=== PATIENT | female | born 1960 | race African-American/Black ===

== ENCOUNTER → 2017-09-15 | Day surgery (SDC) | payer BC, OTHER ==
--- NOTE | 2017-09-18 15:09 | PATH ---
Surgical Pathology Report Patient Name: NATALY DAVALOS [facility]. Rec. #: [id number] /Age/Gender: 1960 (Age: 57) / F Account: [id number] Location: [facility] RADIOLOGY U Taken: 09/15/2017 Received: 09/15/2017 Reported: 09/18/2017 Physicians: Megan Garcia M.D. Specimen(s) Received RIGHT BREAST CORE BIOPSY Clinical History Palpable mass Ultrasound findings: Suspicious Final Diagnosis BREAST, RIGHT, CORE BIOPSY: INVASIVE DUCTAL CARCINOMA , MODERATELY DIFFERENTIATED, MEASURING 1.3 CM IN THIS MATERIAL. BREAST PROGNOSTIC MARKERS ARE PENDING AND WILL BE REPORTED AN ADDENDUM. Electronically Signed Carina Christianson M.D. Addendum Reported: 09/19/2017 Addendum Diagnosis Results of Estrogen Receptor (ER) and Progesterone Receptor (OK) studies performed at [facility] are as follows: ER (clone [id number] mouse monoclonal antibody by [employer]): 99 % nuclear staining with strong intensity (Positive). OK (clone16 mouse monoclonal antibody by Leica): 0% nuclear staining (Negative). Results of Her2 (IHC) & Ki-67 studies performed at [place], [place] ([id number]) and interpreted at [facility] are as follows: Her2 IHC (EP3 from [employer], formerly known as [id number], using Louis Polymer Refine detection kit): 0 (Negative) Ki-67: Up to 30% (intermediate proliferative index). Positive and negative controls (internal if applicable) show appropriate results. Formalin fixation and cold ischemic times are within current ASCO/CAP recommendations for ER, OK and Her2 testing. Carina Christianson M.D. Gross Description Received in formalin labeled "right breast biopsy RA," are 9 wang-yellow, cylindrical portions of fibroadipose tissue ranging from 0.3-1.3 cm in length and averaging 0.1 cm in diameter. The specimens are submitted in toto in 2 cassettes Time to formalin fixation: Less than one minute Total formalin fixation time: Approximately 6 hours. 09/15/201709/15/2017
--- NOTE | 2017-09-19 00:34 | OP ---
DATE OF OPERATION: 09/15/2017 PREOPERATIVE DIAGNOSIS: Right breast mass, retroareolar. POSTOPERATIVE DIAGNOSIS: Right breast mass, retroareolar. PROCEDURE: Right ultrasound-guided core biopsy with clip placement. ATTENDING SURGEON: Kenny Burrell M.D. ESTIMATED BLOOD LOSS: Minimal. COMPLICATIONS: None. DESCRIPTION OF PROCEDURE: Patient was made aware of risks and benefits of the procedure and consented. She is placed in a supine position. Under sterile conditions, with 1% lidocaine for local anesthesia, a small william was made in the skin. Using a 13-gauge suction biopsy device, the inferolateral approach under ultrasound guidance, multiple cores were obtained and submitted to pathology. Likewise under ultrasound guidance, a U-shaped clip was placed into the biopsy region. Well tolerated by patient. Steri-Strip and a sterile bandage was applied. Will contact her with results. KENNY BURRELL M.D. [id number]
== END | disposition home or self-care (01) ==
LOC: FRADUS-SUR 13:24
PROVIDERS: ATTEND Surgery
PROC: 0HBT3ZX Excision of Right Breast, Percutaneous Approach, Diagnostic (ICD-10-PCS; principal; 2017-09-15)
DX: C50.111 Malignant neoplasm of central portion of right female breast (principal); N63.41 Unspecified lump in right breast, subareolar
CPT/HCPCS: 19083; 87899; 88305-TC; 88342-TC; A4648

== ENCOUNTER 2017-10-10 06:14 | Day surgery (SDC) | payer BC, OTHER ==
[2017-10-03 15:13] VITALS: BMI 28.3
--- NOTE | 2017-10-06 10:36 | HP ---
Admitting History and Physical - Primary Care Physician PCP: Naima Pang - Admission Chief Complaint: Right breast cancer History of Present Illness: 57 year old postmenapausal female whose partner noted right breast mass . Mammogram 07/2017 showed right breast 2.4 cm mass and on US 2.2 cm US core biopsy 08/2017 right breast showed invasive ductal carcinoma. MRI breast 2016 showed left breast no enhancement and newly diagnosed right breast cancer without evidence of adenopathy. History Source: Patient Limitations to Obtaining History: No Limitations - Past Medical History Cardiovascular: Yes: HTN - Past Surgical History Additional Past Surgical History: left beast excisional biopsy benign 1976 - Advance Directives Advance Directives: Yes: Health Care Proxy - Smoking History Smoking history: Never smoked Have you smoked in the past 12 months: No - Alcohol/Substance Use Hx Alcohol Use: No Home Medications - Allergies Allergies/Adverse Reactions: Allergies Allergy/AdvReac Type Severity Reaction Status Date / Time Penicillins Allergy Verified 10/03/17 14:52 - Home Medications Home Medications: Ambulatory Orders Amlodipine Besylate 10 mg PO DAILY 10/03/17 Calc/D3/Mag/Zn/[place]/Maximiliano/[place] [Calcium 600 mg Plus Vit D Tab] 1 tab PO DAILY Chlorthalidone [Hygroton -] 25 mg PO DAILY 10/03/17 Enalapril Maleate [Vasotec -] 10 mg PO DAILY 10/03/17 Ergocalciferol [Vitamin D2] 50,000 unit PO DAILY 10/03/17 Labetalol HCl [Normodyne -] 200 mg PO BID 10/03/17 Family Disease History - Family Disease History Family History: Unremarkable Physical Examination Constitutional: Yes: Well Nourished, No Distress Breast(s): Yes: Other (healed left breast scar with out palpable mass , right retroareolar mass at 12:00 which is hard with irreguar borders measuring 3 cm and postBX changes.) Problem List - Problems (1) Breast cancer, right breast Code(s): C50.911 - MALIGNANT NEOPLASM OF UNSP SITE OF RIGHT FEMALE BREAST Qualifiers: Breast location: areola Patient sex: female Assessment/Plan Right breast wide excision, sentenel node biopsy ,lymphoscintogram , possible axillary node dissection
[2017-10-10] MEDS ORDERED: LIDOCAINE HCL 1%, 10 MG/ML (20ML VIAL) ONE (07:36)
[2017-10-10] MEDS ORDERED: ISOSULFAN BLUE 10 MG/ML VIAL SQ ONE (07:36)
--- NOTE | 2017-10-10 09:06 | HP ---
History & Physical Update - History History: No Change - Physical Physical: No Change - Assessment Assessment: No Change - Plan Plan: No Change
[2017-10-10] MEDS ORDERED: CLINDAMYCIN PHOSPHATE 600 MG/4 ML VIAL IVPB ONE (09:24)
[2017-10-10] MEDS ORDERED: ONDANSETRON 4 MG/2 ML VIAL IVPUSH PRN (10:21)
[2017-10-10] MEDS ORDERED: LACTATED RINGERS SOLUTION 1,000 ML IV SCH (10:30)
[2017-10-10] MEDS ORDERED: ZOLPIDEM TARTRATE 5 MG TABLET PO PRN (11:38)
[2017-10-10] MEDS ORDERED: ACETAMINOPHEN 325 MG TABLET (FP) PO PRN (11:38)
[2017-10-10] MEDS ORDERED: ONDANSETRON 4 MG/2 ML VIAL IVPB PRN (11:38)
[2017-10-10] MEDS: DEXTROSE 5%-0.45% SALINE 1,000 ML IV SCH ×2 (12:23→18:36)
[2017-10-10 12:34] LABS: MEAN CELL VOLUME 92.9 fl (80-96); WHITE BLOOD COUNT 7.7 K/mm3 (4.0-10.0)
[2017-10-10 12:35] LABS: MCH 30.5 pg (25.7-33.7); MCHC 32.8 g/dl (32.0-36.0); MEAN PLT VOLUME 7.4 fl (7.5-11.1); PLATELET COUNT 204 K/MM3 (134-434); RDW 14.3 % (11.6-15.6)
--- NOTE | 2017-10-10 16:42 | OP ---
DATE OF OPERATION: 10/10/2017 PREOPERATIVE DIAGNOSIS: Right breast cancer. POSTOPERATIVE DIAGNOSIS: Right breast cancer. PROCEDURE: Right partial mastectomy and axillary node dissection. SURGEON: Meme Pang MD MACHINE HAND: SHAUN Gurrola ANESTHESIA: General. SPECIMEN: 1. [place] nodes for frozen section. 2. Right partial mastectomy. 3. Additional margins. 4. Additional margins. 5. Additional margins. 6. Additional margins. 7. Additional margins. 8. Additional margins. 9. Axillary contents. ESTIMATED BLOOD LOSS: 100 mL DRAINS: One number 10 JUSTICE. INDICATION FOR PROCEDURE: The patient is a 57-year-old woman who noted a right retroareolar breast mass. Mammogram and ultrasound showed a suspicious mass measuring 2.2 cm. Ultrasound-guided biopsy showed an ER positive, UT negative, HER2-negative invasive ductal cancer. After discussion of her options, she preferred breast conservation. Because the mass was located right behind the areola and the MRI indicated involvement of the nipple, the plan was to do a central excision and a sentinel node biopsy. The procedure, risks, and complications were discussed with the patient prior to surgery. DESCRIPTION OF PROCEDURE: The patient was taken to Nuclear Medicine where she underwent a lymphoscintigraphy to identify the sentinel node. She was then identified in the holding area, and informed consent was obtained. The right breast was marked with a marker. She was taken to the operating room and placed on the operating table in the supine position. She was intubated. Sequential compression devices were placed on both legs. She was given clindamycin prior to surgery. She was intubated, and the right breast was prepped and draped in the usual fashion. A timeout was performed. The breast was injected with isosulfan blue and massaged for 5 minutes. Examination of the axilla with a probe showed an area of high counts. An incision was made in this area with a scalpel. The incision was deepened using electrocautery. Immediately upon entering the axillary fat pad, blue dye was identified. Dissection into this area revealed a large, firm node which was suspicious for metastatic disease. There was also a smaller firm node right beneath this one. Both nodes were blue and hot. They were removed and sent to Pathology for frozen section. Frozen section indicated both nodes showed metastatic cancer. The decision was made to perform an axillary dissection. While waiting for the results of the frozen section, the partial mastectomy was performed. The mass could be felt at the upper border of the areola. An elliptical incision was made around the nipple-areolar complex. The incision was deepened using electrocautery. The dissection continued through the breast until the entire mass was mobilized. The specimen was then removed and oriented with silk sutures. Additional margins were then taken from the superior, deep, medial and lateral regions of the biopsy cavity. They were all labeled with a silk suture at the biopsy cavity side. All specimens were placed in formalin and sent to Pathology. The axillary dissection was then performed. The axillary vein was identified. The fatty catrina tissue inferior to the axillary vein was bluntly dissected free. The tissue along the chest wall and anterior to the latissimus dorsi was included with the specimen. There were some small lymph nodes identified within the specimen. The thoracodorsal nerve was identified and spared. The long thoracic nerve was not identified. The catrina tissue was removed and labeled as axillary contents. It was placed in formalin and sent to Pathology. The wounds were irrigated and inspected for hemostasis. Once hemostasis was satisfactory, the incisions were closed. The axillary incision was closed after a JUSTICE drain was placed. The drain was placed through a separate stab wound and secured using 3-0 nylon suture. The dermis was closed with interrupted sutures of 3-0 Vicryl, and the skin was closed with a running subcuticular closure of 4-0 Biosyn. The breast incision was closed using interrupted sutures of 2-0 plain for the deep tissue and interrupted sutures of 3-0 Vicryl for the dermis. The skin was infiltrated with 0.5% marcaine. The skin was closed with a running subcuticular closure of 4-0 Biosyn. Both wounds were covered with Steri- Strips and a sterile gauze dressing. A surgical bra was then applied. The patient tolerated the procedure well. At the end of the procedure, all sponge, lap, and instrument counts were correct. She was awakened and taken to the recovery area in satisfactory condition. MEME PANG M.D. [id number] MTDD
[2017-10-10] MEDS: CLINDAMYCIN 300 MG PREMIX IVPB 300 MG/50 ML BAG IVPB SCH ×2 (18:33→21:05)
[2017-10-11] MEDS: DEXTROSE 5%-0.45% SALINE 1,000 ML IV SCH (00:04)
[2017-10-11] MEDS: CLINDAMYCIN 300 MG PREMIX IVPB 300 MG/50 ML BAG IVPB SCH ×2 (02:47→09:39)
[2017-10-11 07:57] LABS: MCH 30.6 pg (25.7-33.7); MCHC 33.6 g/dl (32.0-36.0); MEAN CELL VOLUME 91.1 fl (80-96); MEAN PLT VOLUME 7.9 fl (7.5-11.1); PLATELET COUNT 194 K/MM3 (134-434); RDW 14.1 % (11.6-15.6); WHITE BLOOD COUNT 10.4 K/mm3 (4.0-10.0)
[2017-10-11] MEDS ORDERED: HEPARIN NA (PORCINE) 5,000 UNITS/ML 1ML VIAL SQ SCH (10:00)
[2017-10-11 12:12] VITALS: BP 129/77; PULSE 78; TEMP 98.3
--- NOTE | 2017-10-12 16:48 | PATH ---
Surgical Pathology Report Patient Name: NATALY DAVALOS [facility]. Rec. #: [id number] /Age/Gender: 1960 (Age: 57) / F Account: [id number] Location: AMBULATORY SURG Taken: 10/10/2017 Received: 10/10/2017 Reported: 10/13/2017 Physicians: Bird Mcnamara M.D. Specimen(s) Received A: RIGHT SENTINEL LYMPH NODE B: RIGHT PARTIAL MASTECTOMY C: RIGHT BREAST TISSUE SUPERIOR MARGINS D: RIGHT BREAT TISSUE, DEEP POSTERIOR MARGIN E: RIGHT BREAST TISSUE MEDIAL MARGIN F: RIGHT BREAST TISSUE LATERAL MARGIN G: AXILLARY CONTENTS RIGHT SIDE Clinical History Right breast cancer Intraoperative Consult Diagnosis Right sentinel lymph node for frozen section: Two lymph nodes with metastatic carcinoma (2/2). Elida Brumfield M.D., 10/10/17. Final Diagnosis A. SENTINEL LYMPH NODE, RIGHT, EXCISION (FS): TWO LYMPH NODES WITH METASTATIC CARCINOMA (2/2). LARGEST TUMOR DEPOSIT MEASURES 1.4 CM, MICROSCOPICALLY. B. BREAST, RIGHT, PARTIAL MASTECTOMY: INVASIVE DUCTAL CARCINOMA, POORLY DIFFERENTIATED (TUBULE SCORE: 3/3, NUCLEAR GRADE: 2/3, MITOTIC SCORE: 3/3; TOTAL ZAKI SCORE: 8/9). INVASIVE CARCINOMA MEASURES 3.2 CM IN GREATEST DIMENSION (GROSS MEASUREMENT). DUCTAL CARCINOMA IN SITU (DCIS) ADMIXED WITHIN THE TUMOR MASS, SOLID TYPE, INTERMEDIATE NUCLEAR GRADE, WITH FOCAL NECROSIS AND ASSOCIATED MICROCALCIFICATIONS. LYMPHOVASCULAR INVASION IDENTIFIED. SURGICAL MARGINS ARE UNINVOLVED BY INVASIVE CARCINOMA; INVASIVE CARCINOMA IS AT 2MM FROM THE CLOSEST SUPERIOR MARGIN AND 7 MM FROM DEEP MARGIN. SUPERIOR SURGICAL MARGIN INVOLVED BY DCIS. SEE SPECIMEN C-G FOR FINAL MARGINS. SKIN AND NIPPLE IS PRESENT AND IS UNINVOLVED BY CARCINOMA. PRIOR BIOPSY SITE CHANGES ARE PRESENT. PATHOLOGIC STAGE (pTNM): pT2 pN1a. SEE ALSO INVASIVE CARCINOMA CASE SUMMARY BELOW. C. BREAST TISSUE, RIGHT, SUPERIOR MARGIN, EXCISION: FEW FOCI OF DUCTAL CARCINOMA IN SITU < 1 MM FROM NEW SURGICAL MARGIN. D. BREAST TISSUE, RIGHT, DEEP POSTERIOR MARGIN, EXCISION: BENIGN BREAST TISSUE WITH FIBROCYSTIC CHANGES INCLUDING STROMAL FIBROSIS, CYST FORMATION, DUCT ECTASIA, AND MICROCALCIFICATIONS WITHIN BENIGN DUCTS. E. BREAST TISSUE, RIGHT, MEDIAL MARGIN, EXCISION: BENIGN BREAST TISSUE WITH FIBROCYSTIC CHANGES INCLUDING STROMAL FIBROSIS, CYST FORMATION, AND DUCT ECTASIA. F. BREAST TISSUE, RIGHT, LATERAL MARGIN, EXCISION: BENIGN BREAST TISSUE WITH FIBROCYSTIC CHANGES INCLUDING STROMAL FIBROSIS, CYST FORMATION, APOCRINE METAPLASIA, AND MICROCALCIFICATIONS WITHIN BENIGN DUCTS. G. AXILLARY CONTENTS, RIGHT, EXCISION: ELEVEN BENIGN LYMPH NODES (0/11). Comments Breast Invasive Carcinoma: Surgical Pathology Cancer Case Summary Based on AJCC/UICC TNM, 7th edition Procedure _X_ Partial mastectomy (including nipple and skin) Lymph Node Sampling _X_ [place] lymph node(s) _X_ Axillary dissection Specimen Laterality _X_ Right Greatest dimension of largest focus of invasion over 1 mm: 3.2 cm Tumor Focality of the _X_ Single focus of invasive carcinoma Macroscopic and Microscopic Extent of Tumor Skin _X_ Invasive carcinoma does not invade into the dermis or epidermis Nipple _X_ DCIS does not involve the nipple epidermis Ductal Carcinoma In Situ (DCIS) _X_ DCIS is present _X_ as a minor component (<25% of tumor) Histologic Type of Invasive Carcinoma : _X_ Invasive carcinoma of no special type (ductal, not otherwise specified) Histologic Grade: (Zaki Histologic Score) Tubular Differentiation _X_ Score 3 Nuclear Pleomorphism _X_ Score 2 Mitotic Rate _X__ Score 3 Overall Grade _X__ Grade 3: scores of 8 (poorly differentiated) Margins _X__ Margins uninvolved by invasive carcinoma Distance from closest margin: _2__ mm Specify margin: Superior Final superior margin is negative for invasive carcinoma. Specify margin: _X__ Margin(s) close to (< 1 mm) DCIS: Superior (See final superior margin, part C) Lymph-Vascular Invasion _X__ Present Lymph Nodes Total number of lymph nodes examined (sentinel and nonsentinel): _13__ Number of sentinel lymph nodes examined: _2__ Number of lymph nodes with macrometastases ( > 2 mm): _2__ Size of largest metastatic deposit (if present): _1.4 cm__ Extranodal Extension _X__ Not identified Pathologic Staging (pTNM) Primary Tumor (Invasive Carcinoma): pT 2 Regional Lymph Nodes (pN): pN1a Biomarker Studies Results of ER and AL studies performed on this specimen prior biopsy ( [id number]) are as follows: ER (clone 6F11 mouse monoclonal antibody by [employer]): 99 % nuclear staining with strong intensity (Positive). AL (clone16 mouse monoclonal antibody by [employer]) : 0 % nuclear staining (Negative). Her2 IHC (EP3 from [employer], formerly known as [id number], using Louis Polymer Refine detection kit): 0 (Negative) Ki67: 30% (intermediate proliferative index) Electronically Signed Carina Christianson M.D. Gross Description A. Received fresh labeled "right sentinel lymph node for frozen," are 2 wang, irregular lymph nodes with attached fat measuring 0.9 x 0.6 x 0.5 cm and 1.8 x 1.5 x 0.6 cm. The lymph nodes are bisected. Half of the larger lymph node and the entire smaller lymph node are submitted for frozen section. The specimen is entirely submitted in 3 cassettes as follows: 1-frozen section residue of half of larger lymph node (other half in cassette 3); 2-frozen section residue of one whole bisected lymph node; 3-remaining half of larger lymph node. B. Received in formalin, labeled "right partial mastectomy," is a 7.3 x 5.7 x 4.0 cm. wang-yellow, irregular, portion of fibroadipose tissue. There is no needle localization wire present. There is a short suture marking the superior aspect and a long suture marking the lateral aspect, per the surgeon. The anterior surface displays a 7.0 x 4.3 cm brown, elliptical portion of skin with a 1.3 cm diameter nipple. The specimen is inked as follows: Superior blue; inferior green; lateral red; medial yellow; deep black. The specimen is serially sectioned from lateral to medial. Sectioning reveals a 3.2 x 3.0 x 2.2 cm wang, indurated mass at 0.2 cm from the superior margin, 0.3 cm from the skin and 0.7 cm from the deep margin. The remaining margins appear clear of the mass. [employer] sections are submitted in 14 cassettes as follows: 1-serially sectioned nipple; 2-subareolar shave; 3-4-one bisected section of mass; 5-6-mass with skin; 7-9-mass with superior margin; 10-11-mass with deep margin; 12-inferior margin; 13-medial margin; 14-lateral margin. Time to formalin fixation: 5 minutes Total formalin fixation time: Approximately 8 hours. C. Received in formalin labeled "right breast tissue superior margin," is a 3.3 x 2.4 x 0.9 cm irregular portion of fibroadipose tissue with a suture marking the biopsy cavity side, per the surgeon. The new margin is inked blue and the specimen is serially sectioned. The specimen is entirely and sequentially submitted in 5 cassettes. D. Received in formalin labeled "right breast tissue deep posterior margin," is a 2.5 x 2.3 x 0.9 cm irregular portion of fibroadipose tissue with a suture marking biopsy cavity side, per the surgeon. The new margin is inked blue and the specimen is serially sectioned. The specimen is entirely and sequentially submitted in 3 cassettes. E. Received in formalin labeled "right breast tissue medial margin," is a 1.8 x 1.4 x 0.7 cm irregular portion of fibroadipose tissue with a suture marking the biopsy cavity side, per the surgeon. The new margin is inked blue and the specimen is serially sectioned. The specimen is entirely submitted in 2 cassettes. F. Received in formalin labeled "right breast tissue lateral margin," is a 2.3 x 0.9 x 0.9 cm irregular portion of fibroadipose tissue with a suture marking the biopsy cavity side, per the surgeon. The new margin is inked blue and the specimen is serially sectioned. The specimen is entirely and sequentially submitted in 3 cassettes. G. Received in formalin labeled "axillary contents right side," is a 6.4 x 5.3 x 2.0 cm aggregate of yellow, lobulated adipose tissue. Sectioning reveals multiple wang, irregular lymph nodes measuring up to 0.9 cm in greatest dimension. The lymph nodes are entirely submitted in 8 cassettes as follows: 1-2-one whole bisected lymph node each; 3-6-one whole lymph node each; 9-4-msfnnmbk whole possible lymph nodes each. 10/10/2017 saudi10/10/2017
== END 2017-10-11 13:33 | disposition home or self-care (01) ==
LOC: JASUSAT 06:14 → JASU-SURG 06:14 → J6S 13:27 → JASUSAT 10-11 13:33
PROVIDERS: ATTEND Surgery
PROC: 0HBT0ZZ Excision of Right Breast, Open Approach (ICD-10-PCS; principal; 2017-10-10 09:00)
PROC: 07T50ZZ Resection of Right Axillary Lymphatic, Open Approach (ICD-10-PCS; 2017-10-10 09:00)
DX: C50.811 Malignant neoplasm of overlapping sites of right female breast (principal); D05.11 Intraductal carcinoma in situ of right breast; C77.3 Secondary and unspecified malignant neoplasm of axilla and upper limb lymph nodes; N60.31 Fibrosclerosis of right breast; N60.41 Mammary duct ectasia of right breast; N64.89 Other specified disorders of breast
CPT/HCPCS: 36415; 78195-TC; 85027; 88307-TC; 88331-TC; 88332; 94010; 94760; A9541

== ENCOUNTER 2017-11-03 09:23 | Day surgery (SDC) | payer BC, OTHER ==
[2017-10-26 10:38] VITALS: BMI 28.6
--- NOTE | 2017-10-30 10:04 | HP ---
Admitting History and Physical - Primary Care Physician PCP: Kenny Burrell - Admission Chief Complaint: right breast cancer History of Present Illness: 57 yo female S/P right WE with SNBx (10/10/2017) with a positive superior margin noted on final path. Patient is to undergo a reexcision of positive margin. History Source: Patient Limitations to Obtaining History: No Limitations - Past Medical History Cardiovascular: Yes: HTN ...: No - Past Surgical History Past Surgical History: Yes: Breast Biopsy (right breast WE with snbx 10/10/2017) - Smoking History Smoking history: Never smoked Have you smoked in the past 12 months: No - Alcohol/Substance Use Hx Alcohol Use: No Home Medications - Allergies Allergies/Adverse Reactions: Allergies Allergy/AdvReac Type Severity Reaction Status Date / Time Influenza Virus Vaccines Allergy Severe Swelling Verified 10/26/17 10:40 egg yolk Allergy Intermediate DIARRHEA Verified 10/26/17 10:40 Penicillins Allergy Intermediate Rash Verified 10/26/17 10:40 - Home Medications Home Medications: Ambulatory Orders Calc/D3/Mag/Zn/[place]/Maximiliano/[place] [Calcium 600 mg Plus Vit D Tab] 1 tab PO DAILY Chlorthalidone [Hygroton -] 25 mg PO DAILY 10/03/17 Enalapril Maleate [Vasotec -] 10 mg PO DAILY 10/03/17 Ergocalciferol [Vitamin D2] 50,000 unit PO WEEKLY 10/03/17 Labetalol HCl [Normodyne -] 200 mg PO BID 10/03/17 Amlodipine Besylate [Norvasc -] 10 mg PO DAILY 10/10/17 Family Disease History - Family Disease History Family History: Unremarkable Review of Systems - Review of Systems Constitutional: reports: No Symptoms Cardiovascular: reports: No Symptoms Respiratory: reports: No Symptoms Physical Examination Constitutional: Yes: Well Nourished Breast(s): Yes: Right (well healed right breast incision without discharge or erythema) Assessment/Plan Right breast re-excision of positive margins.
[2017-11-03] MEDS ORDERED: LIDOCAINE HCL 1%, 10 MG/ML (20ML VIAL) ONE (11:40)
[2017-11-03] MEDS ORDERED: ONDANSETRON 4 MG/2 ML VIAL IVPUSH PRN (11:58)
[2017-11-03] MEDS ORDERED: KETOROLAC TROMETHAMINE 30 MG/1 ML VIAL IVPUSH PRN (11:58)
[2017-11-03] MEDS ORDERED: DEXTROSE 5%-0.45% SALINE 1,000 ML IV SCH (12:00)
[2017-11-03] MEDS ORDERED: BUPIVACAINE HCL 0.25% 125 MG/50 ML VIAL ONE (12:53)
[2017-11-03] MEDS ORDERED: oxyCODONE HCL 5 MG TABLET PO PRN (13:20)
[2017-11-03] MEDS ORDERED: ONDANSETRON 4 MG/2 ML VIAL ONE (13:27)
[2017-11-03] MEDS ORDERED: LACTATED RINGERS SOLUTION 1,000 ML IV SCH (13:30)
[2017-11-03] MEDS ORDERED: PROMETHAZINE HCL 25 MG/1 ML VIAL ONE (15:07)
[2017-11-03] MEDS ORDERED: oxyCODONE HCL 5 MG TABLET ONE ×2 (16:29→17:05)
[2017-11-03 19:37] VITALS: BP 108/67; PULSE 85; TEMP 98.8
--- NOTE | 2017-11-04 08:16 | OP ---
DATE OF OPERATION: 11/03/2017 PREOPERATIVE DIAGNOSIS: Right breast cancer status post wide excision with positive superior margin. POSTOPERATIVE DIAGNOSIS: Right breast cancer status post wide excision with positive superior margin. PROCEDURE: Re-excision of superior margin. SURGEON: Meme Pang MD WORLD HISTORY TEACHER: SHAUN Cage ANESTHESIA: General. ANESTHESIOLOGIST: Ally Gilbert MD SPECIMENS: 1. Superior lateral margin. 2. Superior medial margin. DRAINS: None. ESTIMATED BLOOD LOSS: 50 mL INDICATION FOR PROCEDURE: The patient is a 57-year-old woman who is status post right breast wide excision and sentinel node biopsy for an invasive cancer. Final pathology showed a close superior margin. She is going to the operating room for re-excision. DESCRIPTION OF PROCEDURE: The patient was identified in the holding area. Informed consent was obtained. The right breast was identified with a marker. She was taken to the operating room and placed on the operating table in the supine position. Sequential compression devices were placed on both legs. She received antibiotics prior to surgery. Examination of the right breast showed a healing central incision. The right breast was prepped and draped in the usual manner. A timeout was performed. The incision was reopened using a scalpel. The incision was deepened until the former wound cavity was exposed. A clamp was used to grasp tissue at the superior margin. Electrocautery was used to mobilize the tissue at the superior margin. A bleeding vessel was encountered which was cauterized. During the procedure, the specimen was divided. Two specimens were removed and labeled as superior medial margin and superior lateral margin. A stitch was placed at the biopsy cavity side. The wound was irrigated and inspected for hemostasis. The specimens were placed in formalin and sent to Pathology. Once hemostasis was satisfactory, the incision was closed. The deep tissue was closed with interrupted sutures of 2-0 plain. The dermis was closed with interrupted sutures of 3-0 Vicryl. The skin was infiltrated with 0.25% Marcaine. The skin was then closed with a running subcuticular closure of 4-0 Monocryl. The wound was cleaned and covered with Steri-Strips and a sterile gauze dressing. A surgical bra was then applied. The patient was awakened and taken to the recovery area in satisfactory condition. At the end of the procedure, all sponge, lap, and instrument counts were correct. MEME PANG M.D. MARIA DOLORES/[id number] MTDD
--- NOTE | 2017-11-07 19:06 | PATH ---
Surgical Pathology Report Patient Name: NATALY DAVALOS Med. Rec. #: [id number] /Age/Gender: 1960 (Age: 57) / F Account: [id number] Location: [facility] Taken: 11/03/2017 Received: 11/03/2017 Reported: 11/07/2017 Physicians: Naima Pang M.D. Specimen(s) Received A: SUPERIOR LATERAL MARGIN RIGHT BREAST B: SUPERIOR MEDIAL MARGIN RIGHT BREAST Clinical History Re-excision margins Final Diagnosis A. BREAST, RIGHT, SUPERIOR LATERAL MARGIN, EXCISION: BENIGN BREAST TISSUE SHOWING PRIOR BIOPSY SITE CHANGES AND FIBROCYSTIC CHANGES. NO RESIDUAL INVASIVE OR IN SITU CARCINOMA IS IDENTIFIED. B. BREAST, RIGHT, SUPERIOR MEDIAL MARGIN, EXCISION: BENIGN BREAST TISSUE SHOWING PRIOR BIOPSY SITE CHANGES WITH FOCAL ASSOCIATED SQUAMOUS METAPLASTIC CHANGE. NO RESIDUAL INVASIVE OR IN SITU CARCINOMA IS IDENTIFIED. Electronically Signed Patricia Frias M.D. Gross Description A. Received in formalin labeled "right breast superior lateral margin," is a 3.4 x 2.0 x 1.1 cm irregular portion of fibroadipose tissue with a suture marking the biopsy cavity side, per the surgeon. The new margin is inked blue and the specimen is serially sectioned. The specimen is entirely and sequentially submitted in 4 cassettes. B. Received in formalin labeled "superior medial margin right breast," is a 2.8 x 2.1 x 1.1 cm irregular portion of fibroadipose tissue with a suture marking the biopsy cavity side, per the surgeon. The new margin is inked blue and the specimen is serially sectioned. The specimen is entirely and sequentially submitted in 4 cassettes. Time to formalin fixation: 6 minutes Total formalin fixation time: Approximately 77 hours. 11/06/201711/06/2017
== END 2017-11-03 19:15 | disposition home or self-care (01) ==
LOC: FASU 09:23
PROVIDERS: ATTEND Surgery
PROC: 0HBT0ZX Excision of Right Breast, Open Approach, Diagnostic (ICD-10-PCS; principal; 2017-11-03 12:29)
DX: C50.811 Malignant neoplasm of overlapping sites of right female breast (principal)
CPT/HCPCS: 88307-TC; 94760

== ENCOUNTER 2018-01-02 07:02 | Day surgery (SDC) | payer BC, OTHER ==
--- NOTE | 2017-12-27 14:37 | HP ---
Admitting History and Physical - Primary Care Physician PCP: Kenny Burrell - Admission Chief Complaint: right breast cancer History of Present Illness: 57 year old postmenapausal female S/P right breast wide excision axillary node dissection 09/2017. Path showed 3.2 cm mass, 2+/13 nodes final margin <1mm and negative re excision 10/2017. Needs life port for chemotherapy. History Source: Patient Limitations to Obtaining History: No Limitations - Past Medical History Cardiovascular: Yes: HTN - Past Surgical History Past Surgical History: Yes: Breast Biopsy (right breast WE with andx 2+/13 nodes 3.2 cm IDC ER+ [place] and her2 negative , 10/10/2017 and re excision 2016 negative margins) - Smoking History Smoking history: Never smoked Have you smoked in the past 12 months: No - Alcohol/Substance Use Hx Alcohol Use: No Home Medications - Allergies Allergies/Adverse Reactions: Allergies Allergy/AdvReac Type Severity Reaction Status Date / Time Influenza Virus Vaccines Allergy Severe Swelling Verified 11/03/17 10:04 egg yolk Allergy Intermediate DIARRHEA Verified 11/03/17 10:04 Penicillins Allergy Intermediate Rash Verified 11/03/17 10:04 - Home Medications Home Medications: Ambulatory Orders Calc/D3/Mag/Zn/[place]/Maximiliano/[place] [Calcium 600 mg Plus Vit D Tab] 1 tab PO DAILY Chlorthalidone [Hygroton -] 25 mg PO DAILY 10/03/17 Enalapril Maleate [Vasotec -] 10 mg PO DAILY 10/03/17 Ergocalciferol [Vitamin D2] 50,000 unit PO WEEKLY 10/03/17 Labetalol HCl [Normodyne -] 200 mg PO BID 10/03/17 Amlodipine Besylate [Norvasc -] 10 mg PO DAILY 10/10/17 Family Disease History - Family Disease History Family History: Denies Physical Examination Constitutional: Yes: Well Nourished Breast(s): Yes: Other (Right breast incision healed well no infection no palpable masses either breast) Problem List - Problems (1) Breast cancer, right breast Code(s): C50.911 - MALIGNANT NEOPLASM OF UNSP SITE OF RIGHT FEMALE BREAST Qualifiers: Breast location: areola Patient sex: female Assessment/Plan Life port insertion
[2017-12-28 09:18] VITALS: BMI 28.1
[2018-01-02] MEDS ORDERED: LIDOCAINE HCL 1%, 10 MG/ML (20ML VIAL) ONE ×2 (07:16→08:55)
[2018-01-02] MEDS ORDERED: HEPARIN NA (PORCINE) 5,000 UNITS/ML 1ML VIAL ONE (07:16)
[2018-01-02] MEDS ORDERED: MIDAZOLAM HCL 2 MG/2 ML SINGLE DOSE VIAL ONE (08:35)
[2018-01-02] MEDS ORDERED: PROPOFOL 20 ML ONE ×2 (08:35→08:55)
[2018-01-02] MEDS ORDERED: CLINDAMYCIN PHOSPHATE 600 MG/4 ML VIAL ONE ×2 (08:42)
[2018-01-02] MEDS ORDERED: KETOROLAC TROMETHAMINE 30 MG/1 ML VIAL IVPUSH PRN (09:27)
[2018-01-02] MEDS ORDERED: ONDANSETRON 4 MG/2 ML VIAL IVPUSH PRN (09:27)
[2018-01-02] MEDS ORDERED: DEXTROSE 5%-0.45% SALINE 1,000 ML IV SCH (09:30)
[2018-01-02 09:43] VITALS: TEMP 98.3
[2018-01-02] MEDS ORDERED: KETOROLAC TROMETHAMINE 30 MG/1 ML VIAL ONE (10:00)
[2018-01-02 10:43] VITALS: BP 111/73; PULSE 78
--- NOTE | 2018-01-02 11:29 | OP ---
DATE OF OPERATION: 01/02/2018 PREOPERATIVE DIAGNOSIS: Right breast cancer. POSTOPERATIVE DIAGNOSIS: Right breast cancer. PROCEDURE: Left subclavian single-lumen LifePort placement. ANESTHESIA: IV sedation with local. ATTENDING SURGEON: Alejandrina Burrell MD STAFF RESPIRATORY THERAPIST: SHAUN Gurrola ESTIMATED BLOOD LOSS: Minimum. COMPLICATIONS: None. DESCRIPTION OF PROCEDURE: Patient was made aware of the risks and benefits of the procedure and consented. Patient was placed in a supine position. After IV sedation was administered, the operative site was prepped and draped in the usual sterile fashion. Next, 1% lidocaine was used for local anesthesia. Patient was placed in Trendelenburg position. Using the Seldinger technique, the left subclavian vein was easily localized, a wire placed into the proper position as seen by intraoperative fluoroscopy. An incision was made over the puncture site, and an additional longer incision was made inferomedial, approximately 2 cm. This was incised down to the subcutaneous fat. At which time, using blunt and sharp dissection, an inferior skin pocket was made. The catheter was tunneled from the larger incision to the smaller incision and fashioned to the proper length. The proximal cut end was then attached to the port head which was then placed into the skin pocket. Under direct fluoroscopic control, a dilator/introducer was placed over the wire, and the dilator and wire were then removed. Catheter was placed through the introducer which was then stripped away. A fluoroscopic examination revealed the catheter to remain in good position. There was easy withdrawal of blood and infusion of heparinized saline. Next, 1 mL of concentrated heparinized saline was then infused. The port head was then sutured to the deep tissues with 2-0 Prolene. Skin was then closed with deep 3-0 Vicryl, followed by a running subcuticular 4-0 Monocryl. Dermabond was then applied, and the patient, having tolerated the procedure well, was transferred to the recovery room. At which time, a chest x-ray was ordered. ALEJANDRINA BURRELL M.D. [id number]
== END 2018-01-02 10:40 | disposition home or self-care (01) ==
LOC: FASU 07:02
PROVIDERS: ATTEND Surgery Surgical Oncology
PROC: B517ZZA Fluoroscopy of Left Subclavian Vein, Guidance (ICD-10-PCS; 2018-01-02)
PROC: 05H633Z Insertion of Infusion Device into Left Subclavian Vein, Percutaneous Approach (ICD-10-PCS; principal; 2018-01-02 08:52)
DX: C50.911 Malignant neoplasm of unspecified site of right female breast (principal); I10 Essential (primary) hypertension
CPT/HCPCS: 71045-TC-FY; 76000-TC-FY; J1644

== ENCOUNTER 2018-01-09 07:39 | Day surgery (SDC) | payer OTHER, BC ==
[2018-01-09] MEDS ORDERED: SODIUM CHLORIDE 250 ML IV ONE ×2 (08:00→10:30)
[2018-01-09] MEDS ORDERED: DEXAMETHASONE INJECTION 20 MG in SODIUM CHLORIDE 100 ML IVPB ONE (08:30)
[2018-01-09] MEDS ORDERED: PALONOSETRON HCL 0.25 MG/5 ML VIAL IVPUSH ONE (08:30)
[2018-01-09] MEDS ORDERED: SODIUM CHLORIDE IV ONE (09:00)
[2018-01-09] MEDS ORDERED: DOXORUBICIN HCL IV ONE (09:00)
[2018-01-09] MEDS ORDERED: SODIUM CHLORIDE IVPB ONE (10:00)
[2018-01-09] MEDS ORDERED: CYCLOPHOSPHAMIDE IVPB ONE (10:00)
[2018-01-09 10:25] VITALS: TEMP 98.1
[2018-01-09 10:50] LABS: BASO % 0.6 % (0-2.0); EOS % 0.9 % (0-4.5); HEMATOCRIT 36.1 % (32.4-45.2); HEMOGLOBIN 11.8 GM/dL (10.7-15.3); LYMPH % 37.1 % (8-40); MCH 30.4 pg (25.7-33.7); MCHC 32.8 g/dl (32.0-36.0); MEAN CELL VOLUME 92.9 fl (80-96); MEAN PLT VOLUME 7.3 fl (7.5-11.1); MONO % 8.4 % (3.8-10.2); PLATELET COUNT 202 K/MM3 (134-434); RBC 3.88 M/mm3 (3.60-5.2); WHITE BLOOD COUNT 5.5 K/mm3 (4.0-10.0)
[2018-01-09 11:31] LABS: ALBUMIN 4.1 g/dl (3.4-5.0); ALK PHOS 68 U/L (45-117); ANION GAP 6 (8-16); BILIRUBIN,DIRECT < 0.2 mg/dL (0.0-0.2); BILIRUBIN,TOTAL 0.4 mg/dL (0.2-1.0); BLOOD UREA NITROGEN 13 mg/dL (7-18); CALCIUM 8.5 mg/dL (8.5-10.1); CHLORIDE 105 mmol/L (98-107); CO2 30 mmol/L (21-32); CREATININE 0.9 mg/dL (0.55-1.02); GLUCOSE,RANDOM 86 mg/dL (74-106); MAGNESIUM 2.1 mg/dL (1.8-2.4); POTASSIUM 3.8 mmol/L (3.5-5.1); SGOT/AST 17 U/L (15-37); SGPT/ALT 25 U/L (12-78); SODIUM 141 mmol/L (136-145); TOT PROT 7.3 g/dl (6.4-8.2)
[2018-01-09] MEDS ORDERED: LIDOCAINE 2.5%/PRILOCAINE 2.5% (5 Gram/TUBE) TP ONE (11:35)
[2018-01-09] MEDS ORDERED: BACITRACIN 15 GM TUBE TOPICAL OINTMENT TP SCH (14:00)
[2018-01-09] MEDS ORDERED: PORTA CATH FLUSH 10 ML IVPUSH ONE (14:45)
[2018-01-09 19:07] VITALS: BP 104/70; PULSE 87
== END 2018-01-09 17:00 | disposition home or self-care (01) ==
LOC: JONCCHEMO 07:39 → J7W 11:57 → JONCCHEMO 17:00
PROVIDERS: ATTEND Internal Medicine Hematology & Oncology
DX: Z51.11 Encounter for antineoplastic chemotherapy (principal); C50.911 Malignant neoplasm of unspecified site of right female breast
CPT/HCPCS: 36415; 80053; 80076; 83735; 85025; 96361; 96375; 96411; 96413; 96417; J1100; J2469; J9070

== ENCOUNTER 2018-01-10 07:33 | Day surgery (SDC) | payer OTHER, BC ==
[2018-01-10] MEDS ORDERED: PEGFILGRASTIM 6 MG/0.6 ML DISP.SYRIN SQ ONE (08:00)
[2018-01-10 16:34] VITALS: TEMP 97.8
[2018-01-10 16:35] VITALS: BP 122/69; PULSE 60
== END 2018-01-10 16:00 | disposition home or self-care (01) ==
LOC: JONCCHEMO 07:33 → J7W 15:41 → JONCCHEMO 16:00
PROVIDERS: ATTEND Internal Medicine Hematology & Oncology
PROC: 3E013GC Introduction of Other Therapeutic Substance into Subcutaneous Tissue, Percutaneous Approach (ICD-10-PCS; principal; 2018-01-10)
DX: C50.911 Malignant neoplasm of unspecified site of right female breast (principal); Z76.89 Persons encountering health services in other specified circumstances
CPT/HCPCS: 96372; J2505

== ENCOUNTER 2018-01-23 07:26 | Day surgery (SDC) | payer OTHER, BC ==
[2018-01-23] MEDS ORDERED: SODIUM CHLORIDE 250 ML IV ONE (09:00)
[2018-01-23] MEDS ORDERED: DEXAMETHASONE INJECTION 20 MG in SODIUM CHLORIDE 100 ML IVPB ONE (10:00)
[2018-01-23] MEDS ORDERED: PALONOSETRON HCL 0.25 MG/5 ML VIAL IVPUSH ONE (10:00)
[2018-01-23] MEDS ORDERED: DOXORUBICIN HCL IV ONE (10:30)
[2018-01-23] MEDS ORDERED: SODIUM CHLORIDE IV ONE (10:30)
[2018-01-23 10:53] LABS: HEMATOCRIT 34.8 % (32.4-45.2); HEMOGLOBIN 11.4 GM/dL (10.7-15.3); MCH 30.6 pg (25.7-33.7); MCHC 32.7 g/dl (32.0-36.0); MEAN CELL VOLUME 93.5 fl (80-96); MEAN PLT VOLUME 7.8 fl (7.5-11.1); PLATELET COUNT 175 K/MM3 (134-434); RBC 3.72 M/mm3 (3.60-5.2); RDW 13.9 % (11.6-15.6); WHITE BLOOD COUNT 6.4 K/mm3 (4.0-10.0)
[2018-01-23 11:00] LABS: ALBUMIN 3.7 g/dl (3.4-5.0); ANION GAP 4 (8-16); BLOOD UREA NITROGEN 15 mg/dL (7-18); CALCIUM 8.6 mg/dL (8.5-10.1); CHLORIDE 103 mmol/L (98-107); CO2 32 mmol/L (21-32); GLUCOSE,RANDOM 95 mg/dL (74-106); POTASSIUM 3.7 mmol/L (3.5-5.1); SODIUM 139 mmol/L (136-145)
[2018-01-23] MEDS ORDERED: SODIUM CHLORIDE IVPB ONE (11:00)
[2018-01-23] MEDS ORDERED: CYCLOPHOSPHAMIDE IVPB ONE (11:00)
[2018-01-23 11:04] LABS: ALK PHOS 68 U/L (45-117); BILIRUBIN,DIRECT < 0.2 mg/dL (0.0-0.2); BILIRUBIN,TOTAL 0.5 mg/dL (0.2-1.0); CREATININE 0.8 mg/dL (0.55-1.02); SGOT/AST 13 U/L (15-37); SGPT/ALT 19 U/L (12-78); TOT PROT 7.4 g/dl (6.4-8.2)
[2018-01-23 11:53] LABS: ANISOCYTOSIS 1+; MACROCYTOSIS 1+; PLATELET ESTIMATE NORMAL; TEAR DROP CELLS 0
[2018-01-23] MEDS ORDERED: SODIUM CHLORIDE 250 ML IV SCH (12:30)
--- NOTE | 2018-01-23 14:05 | PN ---
Progress Note (short form) - Note Progress Note: Vascular surgery Pt seen and examined. Port site is soft. all borders of the port can be palpated. pt just received infusion of saline. Please use port for chemo. no contraindications. Romero Dunaway DO
[2018-01-23] MEDS ORDERED: OLANZapine 5 MG TABLET PO ONE (15:15)
[2018-01-23 18:09] VITALS: BP 123/76; PULSE 72; TEMP 98.3
[2018-01-23] MEDS ORDERED: PORTA CATH FLUSH 10 ML IVPUSH ONE (18:09)
== END 2018-01-23 17:00 | disposition home or self-care (01) ==
LOC: JONCCHEMO 07:26 → J7W 12:03 → JONCCHEMO 17:00
PROVIDERS: ATTEND Internal Medicine Hematology & Oncology
PROC: 3E04305 Introduction of Other Antineoplastic into Central Vein, Percutaneous Approach (ICD-10-PCS; principal; 2018-01-23)
PROC: 3E043GC Introduction of Other Therapeutic Substance into Central Vein, Percutaneous Approach (ICD-10-PCS; 2018-01-23)
PROC: 3E0437Z Introduction of Electrolytic and Water Balance Substance into Central Vein, Percutaneous Approach (ICD-10-PCS; 2018-01-23)
DX: Z51.11 Encounter for antineoplastic chemotherapy (principal); C50.011 Malignant neoplasm of nipple and areola, right female breast; Z17.0 Estrogen receptor positive status [ER+]; I10 Essential (primary) hypertension
CPT/HCPCS: 36415; 71046-TC-FY; 80053; 80076; 83735; 85025; 96361; 96367; 96375; 96413; 96417; J1100; J2469; J9070

== ENCOUNTER 2018-01-24 07:39 | Day surgery (SDC) | payer OTHER, BC ==
[~2018-01-24 07:39] MED LIST: OLANZapine 5 MG TABLET PO ONE; SODIUM CHLORIDE 500 ML IV SCH
[2018-01-24] MEDS ORDERED: PEGFILGRASTIM 6 MG/0.6 ML DISP.SYRIN SQ ONE (10:00)
[2018-01-24 19:21] VITALS: BP 146/86; PULSE 80; TEMP 98
== END 2018-01-24 18:15 | disposition home or self-care (01) ==
LOC: JONCCHEMO 07:39 → J7W 17:45 → JONCCHEMO 18:15
PROVIDERS: ATTEND Internal Medicine Hematology & Oncology
PROC: 3E013GC Introduction of Other Therapeutic Substance into Subcutaneous Tissue, Percutaneous Approach (ICD-10-PCS; principal; 2018-01-24)
DX: C50.011 Malignant neoplasm of nipple and areola, right female breast (principal)
CPT/HCPCS: 96372; J2505

== ENCOUNTER 2018-02-06 07:19 | Day surgery (SDC) | payer OTHER, BC ==
[2018-02-06] MEDS ORDERED: SODIUM CHLORIDE 250 ML IV ONE ×2 (09:00→11:30)
[2018-02-06] MEDS ORDERED: PALONOSETRON HCL 0.25 MG/5 ML VIAL IVPUSH ONE (10:00)
[2018-02-06] MEDS ORDERED: DEXAMETHASONE INJECTION 20 MG in SODIUM CHLORIDE 100 ML IVPB ONE (10:00)
[2018-02-06] MEDS ORDERED: DOXORUBICIN HCL IV ONE (10:30)
[2018-02-06] MEDS ORDERED: SODIUM CHLORIDE IV ONE (10:30)
[2018-02-06 10:40] LABS: HEMATOCRIT 31.4 % (32.4-45.2); HEMOGLOBIN 10.4 GM/dL (10.7-15.3); MCH 31.2 pg (25.7-33.7); MCHC 33.2 g/dl (32.0-36.0); MEAN PLT VOLUME 7.3 fl (7.5-11.1); PLATELET COUNT 190 K/MM3 (134-434); RBC 3.34 M/mm3 (3.60-5.2); RDW 14.2 % (11.6-15.6); WHITE BLOOD COUNT 6.5 K/mm3 (4.0-10.0)
[2018-02-06] MEDS ORDERED: CYCLOPHOSPHAMIDE IVPB ONE (11:00)
[2018-02-06] MEDS ORDERED: SODIUM CHLORIDE IVPB ONE ×2 (11:00→12:30)
[2018-02-06 11:05] LABS: ALBUMIN 3.6 g/dl (3.4-5.0); ANION GAP 10 (8-16); BILIRUBIN,TOTAL 0.3 mg/dL (0.2-1.0); BLOOD UREA NITROGEN 14 mg/dL (7-18); CHLORIDE 102 mmol/L (98-107); CO2 29 mmol/L (21-32); CREATININE 0.8 mg/dL (0.55-1.02); GLUCOSE,RANDOM 110 mg/dL (74-106); POTASSIUM 3.1 mmol/L (3.5-5.1); SGOT/AST 17 U/L (15-37); SGPT/ALT 22 U/L (12-78); SODIUM 141 mmol/L (136-145); TOT PROT 7.2 g/dl (6.4-8.2)
[2018-02-06 11:08] LABS: ALK PHOS 67 U/L (45-117)
[2018-02-06 11:15] LABS: ALBUMIN 3.6 g/dl (3.4-5.0); ALK PHOS 70 U/L (45-117); BILIRUBIN,DIRECT < 0.2 mg/dL (0.0-0.2); BILIRUBIN,TOTAL 0.4 mg/dL (0.2-1.0); SGOT/AST 17 U/L (15-37); SGPT/ALT 20 U/L (12-78); TOT PROT 7.1 g/dl (6.4-8.2)
[2018-02-06] MEDS ORDERED: DEXAMETHASONE SOD PHOSPHATE 20 MG/5 ML VIAL IVPB ONE (11:49)
[2018-02-06] MEDS ORDERED: ONDANSETRON 4 MG/2 ML VIAL IVPB ONE (11:50)
[2018-02-06 11:59] LABS: ANISOCYTOSIS 1+; MACROCYTOSIS 1+; PLATELET ESTIMATE NORMAL
[2018-02-06] MEDS ORDERED: ONDANSETRON IVPB ONE (12:30)
[2018-02-06] MEDS ORDERED: DEXAMETHASONE IVPB ONE (12:30)
[2018-02-06] MEDS ORDERED: FOSAPREPITANT DIMEGLUMINE 150 MG in SODIUM CHLORIDE 145 ML IVPB ONE (12:30)
[2018-02-06] MEDS ORDERED: LIDOCAINE 2.5%/PRILOCAINE 2.5% (5 Gram/TUBE) TP ONE (12:45)
[2018-02-06] MEDS ORDERED: POTASSIUM CHLORIDE ORAL LIQUID 20 MEQ/15 ML PO ONE (14:00)
[2018-02-06 15:56] VITALS: TEMP 97.8
[2018-02-06] MEDS ORDERED: PORTA CATH FLUSH 10 ML IVPUSH ONE (16:00)
[2018-02-06 18:28] VITALS: BP 108/77; PULSE 84
== END 2018-02-06 18:35 | disposition home or self-care (01) ==
LOC: JONCCHEMO 07:19 → J7W 11:38 → JONCCHEMO 18:35
PROVIDERS: ATTEND Internal Medicine Hematology & Oncology
DX: Z51.11 Encounter for antineoplastic chemotherapy (principal); C50.011 Malignant neoplasm of nipple and areola, right female breast
CPT/HCPCS: 36415; 80053; 80076; 83735; 85025; 87517; 96361; 96367; 96375; 96413; J1100; J1453; J9070

== ENCOUNTER 2018-02-20 08:10 | Day surgery (SDC) | payer OTHER, BC ==
[~2018-02-20 08:10] MED LIST changes: -OLANZapine 5 MG TABLET PO ONE; +SODIUM CHLORIDE 250 ML IV ONE; -SODIUM CHLORIDE 500 ML IV SCH
[2018-02-20] MEDS ORDERED: DEXAMETHASONE INJECTION 12 MG, ONDANSETRON INJECTION 8 MG in SODIUM CHLORIDE 100 ML IVPB ONE (08:30)
[2018-02-20] MEDS ORDERED: DEXAMETHASONE INJECTION 20 MG in SODIUM CHLORIDE 100 ML IVPB ONE (08:30)
[2018-02-20] MEDS ORDERED: PALONOSETRON HCL 0.25 MG/5 ML VIAL IVPUSH ONE (08:30)
[2018-02-20] MEDS ORDERED: FOSAPREPITANT DIMEGLUMINE 150 MG in SODIUM CHLORIDE 145 ML IVPB ONE ×2 (08:30→14:30)
[2018-02-20] MEDS ORDERED: DOXORUBICIN HCL IV ONE (09:00)
[2018-02-20] MEDS ORDERED: SODIUM CHLORIDE IV ONE (09:00)
[2018-02-20] MEDS ORDERED: CYCLOPHOSPHAMIDE IVPB ONE (09:30)
[2018-02-20] MEDS ORDERED: SODIUM CHLORIDE IVPB ONE (09:30)
[2018-02-20 09:42] VITALS: TEMP 98.4
[2018-02-20] MEDS ORDERED: SODIUM CHLORIDE 250 ML IV ONE (10:00)
[2018-02-20 10:54] LABS: ALBUMIN 3.6 g/dl (3.4-5.0); ANION GAP 3 (8-16); BLOOD UREA NITROGEN 9 mg/dL (7-18); CALCIUM 8.5 mg/dL (8.5-10.1); CHLORIDE 106 mmol/L (98-107); CO2 33 mmol/L (21-32); GLUCOSE,RANDOM 86 mg/dL (74-106); SGOT/AST 19 U/L (15-37); SGPT/ALT 32 U/L (12-78); SODIUM 142 mmol/L (136-145)
[2018-02-20 10:57] LABS: ALK PHOS 60 U/L (45-117); BILIRUBIN,TOTAL 0.2 mg/dL (0.2-1.0); CREATININE 0.7 mg/dL (0.55-1.02); TOT PROT 6.5 g/dl (6.4-8.2)
[2018-02-20 11:05] LABS: BASO % 0.3 % (0-2.0); HEMATOCRIT 30.1 % (32.4-45.2); HEMOGLOBIN 10.1 GM/dL (10.7-15.3); LYMPH % 14.3 % (8-40); MCH 32.1 pg (25.7-33.7); MCHC 33.5 g/dl (32.0-36.0); MEAN CELL VOLUME 95.8 fl (80-96); MONO % 17.2 % (3.8-10.2); NEUT % 68.2 % (42.8-82.8); PLATELET COUNT 183 K/MM3 (134-434); RBC 3.14 M/mm3 (3.60-5.2); RDW 16.9 % (11.6-15.6)
[2018-02-20 11:16] LABS: BILIRUBIN,DIRECT < 0.2 mg/dL (0.0-0.2); MAGNESIUM 2.2 mg/dL (1.8-2.4)
[2018-02-20] MEDS ORDERED: PORTA CATH FLUSH 10 ML IVPUSH ONE ×2 (12:44→14:41)
[2018-02-20 16:37] VITALS: BP 124/81; PULSE 86
== END 2018-02-20 16:39 | disposition home or self-care (01) ==
LOC: JONCCHEMO 08:10 → J7W 11:08 → JONCCHEMO 16:39
PROVIDERS: ATTEND Internal Medicine Hematology & Oncology
DX: Z51.11 Encounter for antineoplastic chemotherapy (principal); C50.011 Malignant neoplasm of nipple and areola, right female breast
CPT/HCPCS: 36415; 80053; 80076; 83735; 85025; 96361; 96367; 96375; 96413; 96417; J1100; J1453; J2405; J9070

== ENCOUNTER 2018-02-21 07:35 | Day surgery (SDC) | payer OTHER, BC ==
[2018-02-21] MEDS ORDERED: PEGFILGRASTIM 6 MG/0.6 ML DISP.SYRIN SQ ONE (08:00)
[2018-02-21 17:12] VITALS: BP 111/72; PULSE 78; TEMP 98.2
== END 2018-02-21 17:14 | disposition home or self-care (01) ==
LOC: JONCCHEMO 07:35 → J7W 16:50 → JONCCHEMO 17:14
PROVIDERS: ATTEND Internal Medicine Hematology & Oncology
PROC: 3E013GC Introduction of Other Therapeutic Substance into Subcutaneous Tissue, Percutaneous Approach (ICD-10-PCS; principal; 2018-02-21)
DX: C50.011 Malignant neoplasm of nipple and areola, right female breast (principal); Z76.89 Persons encountering health services in other specified circumstances
CPT/HCPCS: 96372; J2505

== ENCOUNTER 2018-03-13 07:21 | Day surgery (SDC) | payer OTHER, BC ==
[2018-03-13] MEDS ORDERED: SODIUM CHLORIDE 250 ML IV ONE ×2 (09:00→11:30)
[2018-03-13] MEDS ORDERED: ONDANSETRON IVPB ONE (10:00)
[2018-03-13] MEDS ORDERED: [UNRECOGNIZED DRUG - OTHER] IVPB ONE (10:00)
[2018-03-13] MEDS ORDERED: DIPHENHYDRAMINE IVPB ONE (10:00)
[2018-03-13] MEDS ORDERED: DEXAMETHASONE IVPB ONE (10:00)
[2018-03-13] MEDS ORDERED: PACLITAXEL 156 MG in SODIUM CHLORIDE 250 ML IVPB ONE (10:30)
[2018-03-13 11:04] LABS: BASO % 0.5 % (0-2.0); EOS % 0.4 % (0-4.5); HEMATOCRIT 27.6 % (32.4-45.2); HEMOGLOBIN 9.3 GM/dL (10.7-15.3); LYMPH % 12.5 % (8-40); MCH 32.6 pg (25.7-33.7); MCHC 33.7 g/dl (32.0-36.0); MEAN CELL VOLUME 96.7 fl (80-96); MEAN PLT VOLUME 6.9 fl (7.5-11.1); MONO % 16.6 % (3.8-10.2); PLATELET COUNT 311 K/MM3 (134-434); RBC 2.86 M/mm3 (3.60-5.2); WHITE BLOOD COUNT 5.5 K/mm3 (4.0-10.0)
[2018-03-13 11:28] LABS: ALBUMIN 3.5 g/dl (3.4-5.0); ANION GAP 6 (8-16); BLOOD UREA NITROGEN 12 mg/dL (7-18); CALCIUM 8.8 mg/dL (8.5-10.1); CHLORIDE 108 mmol/L (98-107); CO2 29 mmol/L (21-32); CREATININE 0.7 mg/dL (0.55-1.02); GLUCOSE,RANDOM 83 mg/dL (74-106); POTASSIUM 4.4 mmol/L (3.5-5.1); SGOT/AST 31 U/L (15-37); SGPT/ALT 46 U/L (12-78); SODIUM 143 mmol/L (136-145)
[2018-03-13 11:29] LABS: ALK PHOS 54 U/L (45-117); BILIRUBIN,TOTAL 0.3 mg/dL (0.2-1.0); TOT PROT 6.8 g/dl (6.4-8.2)
[2018-03-13 11:38] LABS: BILIRUBIN,DIRECT < 0.2 mg/dL (0.0-0.2); MAGNESIUM 2.2 mg/dL (1.8-2.4)
[2018-03-13 12:35] VITALS: TEMP 98.2
[2018-03-13] MEDS ORDERED: PORTA CATH FLUSH 10 ML IVPUSH ONE ×2 (15:15→17:48)
[2018-03-13 17:48] VITALS: BP 115/61; PULSE 90
== END 2018-03-13 13:15 | disposition home or self-care (01) ==
LOC: JONCCHEMO 07:21 → J7W 11:46 → JONCCHEMO 13:15
PROVIDERS: ATTEND Internal Medicine Hematology & Oncology
DX: Z51.11 Encounter for antineoplastic chemotherapy (principal); C50.011 Malignant neoplasm of nipple and areola, right female breast
CPT/HCPCS: 36415; 80053; 80076; 83735; 85025; 96361; 96367; 96375; 96413; J1100

== ENCOUNTER 2018-03-20 07:27 | Day surgery (SDC) | payer OTHER, BC ==
[2018-03-20] MEDS ORDERED: SODIUM CHLORIDE 250 ML IV ONE (09:00)
[2018-03-20] MEDS ORDERED: DEXAMETHASONE IVPB ONE (10:00)
[2018-03-20] MEDS ORDERED: ONDANSETRON IVPB ONE (10:00)
[2018-03-20] MEDS ORDERED: [UNRECOGNIZED DRUG - OTHER] IVPB ONE (10:00)
[2018-03-20] MEDS ORDERED: PACLITAXEL 156 MG in SODIUM CHLORIDE 250 ML IVPB ONE (10:00)
[2018-03-20] MEDS ORDERED: DIPHENHYDRAMINE IVPB ONE (10:00)
[2018-03-20 10:43] LABS: BASO % 0.9 % (0-2.0); EOS % 1.4 % (0-4.5); HEMATOCRIT 27.7 % (32.4-45.2); HEMOGLOBIN 9.5 GM/dL (10.7-15.3); LYMPH % 12.2 % (8-40); MCH 33.2 pg (25.7-33.7); MCHC 34.3 g/dl (32.0-36.0); MEAN CELL VOLUME 96.7 fl (80-96); MEAN PLT VOLUME 7.6 fl (7.5-11.1); NEUT % 73.5 % (42.8-82.8); PLATELET COUNT 243 K/MM3 (134-434); RBC 2.86 M/mm3 (3.60-5.2); RDW 17.3 % (11.6-15.6); WHITE BLOOD COUNT 4.6 K/mm3 (4.0-10.0)
[2018-03-20 11:13] LABS: ALBUMIN 3.4 g/dl (3.4-5.0); ALK PHOS 52 U/L (45-117); ANION GAP 5 (8-16); BILIRUBIN,TOTAL 0.3 mg/dL (0.2-1.0); BLOOD UREA NITROGEN 15 mg/dL (7-18); CALCIUM 8.6 mg/dL (8.5-10.1); CHLORIDE 107 mmol/L (98-107); CO2 29 mmol/L (21-32); CREATININE 0.7 mg/dL (0.55-1.02); GLUCOSE,RANDOM 84 mg/dL (74-106); POTASSIUM 3.6 mmol/L (3.5-5.1); SGOT/AST 27 U/L (15-37); SGPT/ALT 57 U/L (12-78); SODIUM 141 mmol/L (136-145); TOT PROT 6.7 g/dl (6.4-8.2)
[2018-03-20 12:31] LABS: ALBUMIN 3.5 g/dl (3.4-5.0); ALK PHOS 54 U/L (45-117); BILIRUBIN,DIRECT < 0.2 mg/dL (0.0-0.2); BILIRUBIN,TOTAL 0.4 mg/dL (0.2-1.0); MAGNESIUM 2.1 mg/dL (1.8-2.4); SGOT/AST 26 U/L (15-37); SGPT/ALT 59 U/L (12-78); TOT PROT 6.8 g/dl (6.4-8.2)
[2018-03-20 15:56] VITALS: TEMP 98
[2018-03-20] MEDS ORDERED: PORTA CATH FLUSH 10 ML IVPUSH ONE (15:56)
[2018-03-20 16:26] VITALS: BP 128/80; PULSE 90
== END 2018-03-20 16:20 | disposition home or self-care (01) ==
LOC: JONCCHEMO 07:27 → J7W 12:34 → JONCCHEMO 16:20
PROVIDERS: ATTEND Internal Medicine Hematology & Oncology
DX: Z51.11 Encounter for antineoplastic chemotherapy (principal); C50.011 Malignant neoplasm of nipple and areola, right female breast
CPT/HCPCS: 36415; 80053; 80076; 83735; 85025; 96361; 96367; 96375; 96413; J1100

== ENCOUNTER 2018-03-27 07:24 | Day surgery (SDC) | payer OTHER, BC ==
[2018-03-27] MEDS ORDERED: SODIUM CHLORIDE 250 ML IV ONE ×2 (09:00→11:30)
[2018-03-27] MEDS ORDERED: [UNRECOGNIZED DRUG - OTHER] IVPB ONE (10:00)
[2018-03-27] MEDS ORDERED: DIPHENHYDRAMINE IVPB ONE (10:00)
[2018-03-27] MEDS ORDERED: ONDANSETRON IVPB ONE (10:00)
[2018-03-27] MEDS ORDERED: DEXAMETHASONE IVPB ONE (10:00)
[2018-03-27 10:23] LABS: BASO % 0.9 % (0-2.0); HEMATOCRIT 28.3 % (32.4-45.2); HEMOGLOBIN 9.8 GM/dL (10.7-15.3); LYMPH % 13.6 % (8-40); MCH 33.5 pg (25.7-33.7); MCHC 34.7 g/dl (32.0-36.0); MEAN CELL VOLUME 96.7 fl (80-96); MEAN PLT VOLUME 6.8 fl (7.5-11.1); MONO % 9.6 % (3.8-10.2); NEUT % 73.9 % (42.8-82.8); PLATELET COUNT 253 K/MM3 (134-434); RBC 2.93 M/mm3 (3.60-5.2); RDW 17.5 % (11.6-15.6); WHITE BLOOD COUNT 3.9 K/mm3 (4.0-10.0)
[2018-03-27] MEDS ORDERED: PACLITAXEL 156 MG in SODIUM CHLORIDE 250 ML IVPB ONE (10:30)
[2018-03-27 11:01] LABS: ALBUMIN 3.7 g/dl (3.4-5.0); ANION GAP 6 (8-16); BILIRUBIN,DIRECT < 0.2 mg/dL (0.0-0.2); BILIRUBIN,TOTAL 0.5 mg/dL (0.2-1.0); BLOOD UREA NITROGEN 13 mg/dL (7-18); CHLORIDE 105 mmol/L (98-107); CO2 30 mmol/L (21-32); CREATININE 0.8 mg/dL (0.55-1.02); GLUCOSE,RANDOM 80 mg/dL (74-106); POTASSIUM 4.1 mmol/L (3.5-5.1); SGOT/AST 20 U/L (15-37); SGPT/ALT 33 U/L (12-78); SODIUM 141 mmol/L (136-145)
[2018-03-27 11:02] LABS: ALK PHOS 54 U/L (45-117)
[2018-03-27 17:22] VITALS: BP 113/66; PULSE 72; TEMP 97.8
== END 2018-03-27 20:55 | disposition home or self-care (01) ==
LOC: JONCCHEMO 07:24 → J7W 11:35 → JONCCHEMO 20:55
PROVIDERS: ATTEND Internal Medicine Hematology & Oncology
DX: Z51.11 Encounter for antineoplastic chemotherapy (principal); C50.011 Malignant neoplasm of nipple and areola, right female breast
CPT/HCPCS: 36415; 80053; 80076; 83735; 85025; 96361; 96367; 96375; 96413; J1100

== ENCOUNTER 2018-03-30 16:32 | Day surgery (SDC) | payer OTHER, BC ==
[2018-03-30 16:55] VITALS: BP 120/76; PULSE 74; TEMP 97.9
[2018-03-30] MEDS ORDERED: TBO-FILGRASTIM 480 MCG/0.8 ML DISP.SYRIN SQ ONE (17:00)
== END 2018-03-30 16:56 | disposition home or self-care (01) ==
LOC: JONCNONCHE 16:32 → J7W 16:33 → JONCNONCHE 16:56
PROVIDERS: ATTEND Internal Medicine Hematology & Oncology
PROC: 3E013GC Introduction of Other Therapeutic Substance into Subcutaneous Tissue, Percutaneous Approach (ICD-10-PCS; principal; 2018-03-30)
DX: C50.011 Malignant neoplasm of nipple and areola, right female breast (principal); Z76.89 Persons encountering health services in other specified circumstances
CPT/HCPCS: 96372; J1447

== ENCOUNTER 2018-04-03 07:34 | Day surgery (SDC) | payer OTHER, BC ==
[2018-04-03] MEDS ORDERED: SODIUM CHLORIDE 250 ML IV ONE ×2 (09:00→11:30)
[2018-04-03] MEDS ORDERED: ONDANSETRON IVPB ONE (10:00)
[2018-04-03] MEDS ORDERED: DEXAMETHASONE IVPB ONE (10:00)
[2018-04-03] MEDS ORDERED: [UNRECOGNIZED DRUG - OTHER] IVPB ONE (10:00)
[2018-04-03] MEDS ORDERED: DIPHENHYDRAMINE IVPB ONE (10:00)
[2018-04-03 10:19] LABS: BASO % 0.8 % (0-2.0); EOS % 1.3 % (0-4.5); HEMATOCRIT 28.5 % (32.4-45.2); LYMPH % 11.4 % (8-40); MEAN CELL VOLUME 96.9 fl (80-96); MEAN PLT VOLUME 7.3 fl (7.5-11.1); NEUT % 74.5 % (42.8-82.8); PLATELET COUNT 225 K/MM3 (134-434); RBC 2.94 M/mm3 (3.60-5.2); RDW 17.1 % (11.6-15.6); WHITE BLOOD COUNT 5.4 K/mm3 (4.0-10.0)
[2018-04-03] MEDS ORDERED: PACLITAXEL 156 MG in SODIUM CHLORIDE 250 ML IVPB ONE (10:30)
[2018-04-03 10:46] LABS: ALBUMIN 3.6 g/dl (3.4-5.0); ALK PHOS 59 U/L (45-117); ANION GAP 6 (8-16); BILIRUBIN,DIRECT < 0.2 mg/dL (0.0-0.2); BILIRUBIN,TOTAL 0.3 mg/dL (0.2-1.0); BLOOD UREA NITROGEN 12 mg/dL (7-18); CALCIUM 8.7 mg/dL (8.5-10.1); CHLORIDE 105 mmol/L (98-107); CO2 31 mmol/L (21-32); CREATININE 0.8 mg/dL (0.55-1.02); GLUCOSE,RANDOM 86 mg/dL (74-106); MAGNESIUM 1.9 mg/dL (1.8-2.4); POTASSIUM 3.8 mmol/L (3.5-5.1); SGPT/ALT 26 U/L (12-78); SODIUM 142 mmol/L (136-145); TOT PROT 6.8 g/dl (6.4-8.2)
[2018-04-03 10:49] LABS: SGOT/AST 15 U/L (15-37)
[2018-04-03 12:36] VITALS: TEMP 98.2
[2018-04-03] MEDS ORDERED: PORTA CATH FLUSH 10 ML IVPUSH ONE (12:36)
[2018-04-03 15:30] VITALS: BP 110/75; PULSE 83
== END 2018-04-03 15:34 | disposition home or self-care (01) ==
LOC: JONCCHEMO 07:34 → J7W 11:33 → JONCCHEMO 15:34
PROVIDERS: ATTEND Internal Medicine Hematology & Oncology
PROC: 3E04305 Introduction of Other Antineoplastic into Central Vein, Percutaneous Approach (ICD-10-PCS; principal; 2018-04-03)
PROC: 3E0437Z Introduction of Electrolytic and Water Balance Substance into Central Vein, Percutaneous Approach (ICD-10-PCS; 2018-04-03)
PROC: 3E043GC Introduction of Other Therapeutic Substance into Central Vein, Percutaneous Approach (ICD-10-PCS; 2018-04-03)
DX: Z51.11 Encounter for antineoplastic chemotherapy (principal); C50.011 Malignant neoplasm of nipple and areola, right female breast; Z17.0 Estrogen receptor positive status [ER+]; I10 Essential (primary) hypertension
CPT/HCPCS: 36415; 80053; 80076; 83735; 85025; 96361; 96367; 96375; 96413; J1100

== ENCOUNTER 2018-04-06 07:26 | Day surgery (SDC) | payer OTHER, BC ==
[2018-04-06] MEDS ORDERED: TBO-FILGRASTIM 480 MCG/0.8 ML DISP.SYRIN SQ ONE (10:00)
[2018-04-06 15:05] VITALS: BP 110/70; PULSE 80; TEMP 98.1
== END 2018-04-06 13:35 | disposition home or self-care (01) ==
LOC: JONCCHEMO 07:26 → J7W 13:12 → JONCCHEMO 13:35
PROVIDERS: ATTEND Internal Medicine Hematology & Oncology
PROC: 3E013GC Introduction of Other Therapeutic Substance into Subcutaneous Tissue, Percutaneous Approach (ICD-10-PCS; principal; 2018-04-06)
DX: C50.011 Malignant neoplasm of nipple and areola, right female breast (principal)
CPT/HCPCS: 96372; J1447

== ENCOUNTER 2018-04-10 07:35 | Day surgery (SDC) | payer OTHER, BC ==
[2018-04-10] MEDS ORDERED: SODIUM CHLORIDE 250 ML IV ONE ×2 (08:00→10:00)
[2018-04-10] MEDS ORDERED: ONDANSETRON IVPB ONE (08:30)
[2018-04-10] MEDS ORDERED: [UNRECOGNIZED DRUG - OTHER] IVPB ONE (08:30)
[2018-04-10] MEDS ORDERED: DEXAMETHASONE IVPB ONE (08:30)
[2018-04-10] MEDS ORDERED: DIPHENHYDRAMINE IVPB ONE (08:30)
[2018-04-10] MEDS ORDERED: PACLITAXEL IVPB ONE (09:00)
[2018-04-10] MEDS ORDERED: SODIUM CHLORIDE IVPB ONE (09:00)
[2018-04-10 11:00] LABS: BASO % 0.7 % (0-2.0); EOS % 1.2 % (0-4.5); HEMATOCRIT 28.4 % (32.4-45.2); HEMOGLOBIN 9.6 GM/dL (10.7-15.3); MCH 32.9 pg (25.7-33.7); MCHC 33.8 g/dl (32.0-36.0); MEAN CELL VOLUME 97.4 fl (80-96); MEAN PLT VOLUME 7.4 fl (7.5-11.1); MONO % 10.7 % (3.8-10.2); NEUT % 72.4 % (42.8-82.8); PLATELET COUNT 238 K/MM3 (134-434); RBC 2.91 M/mm3 (3.60-5.2); RDW 17.4 % (11.6-15.6); WHITE BLOOD COUNT 4.6 K/mm3 (4.0-10.0)
[2018-04-10 11:31] LABS: ALBUMIN 3.6 g/dl (3.4-5.0); ALK PHOS 77 U/L (45-117); ANION GAP 6 (8-16); BILIRUBIN,DIRECT < 0.2 mg/dL (0.0-0.2); BILIRUBIN,TOTAL 0.3 mg/dL (0.2-1.0); BLOOD UREA NITROGEN 13 mg/dL (7-18); CALCIUM 8.5 mg/dL (8.5-10.1); CHLORIDE 105 mmol/L (98-107); CO2 30 mmol/L (21-32); CREATININE 0.8 mg/dL (0.55-1.02); GLUCOSE,RANDOM 95 mg/dL (74-106); SGOT/AST 23 U/L (15-37); SGPT/ALT 35 U/L (12-78); SODIUM 141 mmol/L (136-145); TOT PROT 6.8 g/dl (6.4-8.2)
[2018-04-10 16:41] VITALS: TEMP 98.5
[2018-04-10] MEDS ORDERED: PORTA CATH FLUSH 10 ML IVPUSH ONE (16:45)
[2018-04-10 16:46] VITALS: BP 152/91; PULSE 102
== END 2018-04-10 16:15 | disposition home or self-care (01) ==
LOC: JONCCHEMO 07:35 → J7W 11:46 → JONCCHEMO 16:15
PROVIDERS: ATTEND Internal Medicine Hematology & Oncology
PROC: 3E04305 Introduction of Other Antineoplastic into Central Vein, Percutaneous Approach (ICD-10-PCS; principal; 2018-04-10)
PROC: 3E043GC Introduction of Other Therapeutic Substance into Central Vein, Percutaneous Approach (ICD-10-PCS; 2018-04-10)
PROC: 3E0437Z Introduction of Electrolytic and Water Balance Substance into Central Vein, Percutaneous Approach (ICD-10-PCS; 2018-04-10)
DX: Z51.11 Encounter for antineoplastic chemotherapy (principal); C50.011 Malignant neoplasm of nipple and areola, right female breast; Z17.0 Estrogen receptor positive status [ER+]; I10 Essential (primary) hypertension
CPT/HCPCS: 36415; 80053; 80076; 83735; 85025; 96361; 96367; 96375; 96413; J1100; J2405

== ENCOUNTER 2018-04-13 07:10 | Day surgery (SDC) | payer OTHER, BC ==
[2018-04-13] MEDS ORDERED: TBO-FILGRASTIM 480 MCG/0.8 ML DISP.SYRIN SQ ONE (09:00)
[2018-04-13 19:14] VITALS: BP 120/81; PULSE 92; TEMP 97.8
== END 2018-04-13 16:10 | disposition home or self-care (01) ==
LOC: JONCNONCHE 07:10 → J7W 15:55 → JONCNONCHE 16:10
PROVIDERS: ATTEND Internal Medicine Hematology & Oncology
PROC: 3E013GC Introduction of Other Therapeutic Substance into Subcutaneous Tissue, Percutaneous Approach (ICD-10-PCS; principal; 2018-04-13)
DX: C50.011 Malignant neoplasm of nipple and areola, right female breast (principal); Z17.0 Estrogen receptor positive status [ER+]; I10 Essential (primary) hypertension
CPT/HCPCS: 96372; J1447

== ENCOUNTER 2018-04-24 08:00 | Day surgery (SDC) | payer OTHER, BC ==
[2018-04-24] MEDS ORDERED: ONDANSETRON IVPB ONE (08:30)
[2018-04-24] MEDS ORDERED: DEXAMETHASONE IVPB ONE (08:30)
[2018-04-24] MEDS ORDERED: [UNRECOGNIZED DRUG - OTHER] IVPB ONE (08:30)
[2018-04-24] MEDS ORDERED: DIPHENHYDRAMINE IVPB ONE (08:30)
[2018-04-24] MEDS ORDERED: PACLITAXEL 150 MG in SODIUM CHLORIDE 250 ML IVPB ONE (09:00)
[2018-04-24] MEDS ORDERED: SODIUM CHLORIDE 250 ML IV ONE (10:00)
[2018-04-24 11:27] LABS: BASO % 0.7 % (0-2.0); EOS % 0.6 % (0-4.5); HEMATOCRIT 26.9 % (32.4-45.2); HEMOGLOBIN 9.2 GM/dL (10.7-15.3); LYMPH % 18.8 % (8-40); MCH 33.6 pg (25.7-33.7); MCHC 34.1 g/dl (32.0-36.0); MEAN CELL VOLUME 98.3 fl (80-96); MEAN PLT VOLUME 6.9 fl (7.5-11.1); MONO % 9.4 % (3.8-10.2); NEUT % 70.5 % (42.8-82.8); PLATELET COUNT 241 K/MM3 (134-434); RBC 2.74 M/mm3 (3.60-5.2); WHITE BLOOD COUNT 3.5 K/mm3 (4.0-10.0)
[2018-04-24 12:13] LABS: ALBUMIN 3.5 g/dl (3.4-5.0); ALK PHOS 61 U/L (45-117); ANION GAP 4 (8-16); BILIRUBIN,DIRECT < 0.2 mg/dL (0.0-0.2); BILIRUBIN,TOTAL 0.3 mg/dL (0.2-1.0); BLOOD UREA NITROGEN 14 mg/dL (7-18); CALCIUM 8.4 mg/dL (8.5-10.1); CHLORIDE 107 mmol/L (98-107); CO2 30 mmol/L (21-32); CREATININE 0.7 mg/dL (0.55-1.02); GLUCOSE,RANDOM 89 mg/dL (74-106); MAGNESIUM 2.2 mg/dL (1.8-2.4); SGOT/AST 21 U/L (15-37); SGPT/ALT 27 U/L (12-78); SODIUM 141 mmol/L (136-145); TOT PROT 6.7 g/dl (6.4-8.2)
[2018-04-24] MEDS ORDERED: SODIUM CHLORIDE IVPB ONE (12:30)
[2018-04-24] MEDS ORDERED: PACLITAXEL IVPB ONE (12:30)
[2018-04-24] MEDS ORDERED: PACLITAXEL 120 MG in SODIUM CHLORIDE 250 ML IVPB ONE (13:00)
[2018-04-24 18:56] VITALS: PULSE 64; TEMP 98.2
[2018-04-24 18:58] VITALS: BP 123/93
== END 2018-04-24 18:05 | disposition home or self-care (01) ==
LOC: JONCCHEMO 08:00 → J7W 13:02 → JONCCHEMO 18:05
PROVIDERS: ATTEND Internal Medicine Hematology & Oncology
DX: Z51.11 Encounter for antineoplastic chemotherapy (principal); C50.011 Malignant neoplasm of nipple and areola, right female breast
CPT/HCPCS: 36415; 80053; 80076; 83735; 85025; 96361; 96367; 96375; 96413; J1100; J2405

== ENCOUNTER 2018-04-27 07:33 | Day surgery (SDC) | payer OTHER, BC ==
[2018-04-27] MEDS ORDERED: TBO-FILGRASTIM 480 MCG/0.8 ML DISP.SYRIN SQ ONE (09:00)
[2018-04-27 15:48] VITALS: BP 131/74; PULSE 91; TEMP 98.3
== END 2018-04-27 11:00 | disposition home or self-care (01) ==
LOC: JONCCHEMO 07:33 → J7W 09:56 → JONCCHEMO 11:00
PROVIDERS: ATTEND Internal Medicine Hematology & Oncology
PROC: 3E013GC Introduction of Other Therapeutic Substance into Subcutaneous Tissue, Percutaneous Approach (ICD-10-PCS; principal; 2018-04-27)
DX: C50.011 Malignant neoplasm of nipple and areola, right female breast (principal); Z76.89 Persons encountering health services in other specified circumstances
CPT/HCPCS: 96372; J1447

== ENCOUNTER 2018-05-01 07:51 | Day surgery (SDC) | payer OTHER, BC ==
[2018-05-01] MEDS ORDERED: SODIUM CHLORIDE 250 ML IV ONE ×2 (08:00→10:00)
[2018-05-01] MEDS ORDERED: DEXAMETHASONE IVPB ONE (08:30)
[2018-05-01] MEDS ORDERED: DIPHENHYDRAMINE IVPB ONE (08:30)
[2018-05-01] MEDS ORDERED: [UNRECOGNIZED DRUG - OTHER] IVPB ONE (08:30)
[2018-05-01] MEDS ORDERED: ONDANSETRON IVPB ONE (08:30)
[2018-05-01] MEDS ORDERED: PACLITAXEL 150 MG in SODIUM CHLORIDE 250 ML IVPB ONE (09:00)
[2018-05-01 09:54] LABS: BASO % 0.6 % (0-2.0); EOS % 0.5 % (0-4.5); HEMATOCRIT 30.7 % (32.4-45.2); HEMOGLOBIN 10.2 GM/dL (10.7-15.3); LYMPH % 15.5 % (8-40); MCH 32.9 pg (25.7-33.7); MCHC 33.4 g/dl (32.0-36.0); MEAN CELL VOLUME 98.7 fl (80-96); MEAN PLT VOLUME 7.3 fl (7.5-11.1); MONO % 14.8 % (3.8-10.2); NEUT % 68.6 % (42.8-82.8); PLATELET COUNT 278 K/MM3 (134-434); RBC 3.11 M/mm3 (3.60-5.2); RDW 16.8 % (11.6-15.6); WHITE BLOOD COUNT 4.3 K/mm3 (4.0-10.0)
[2018-05-01 10:28] LABS: ALBUMIN 3.7 g/dl (3.4-5.0); ANION GAP 6 (8-16); BILIRUBIN,DIRECT < 0.2 mg/dL (0.0-0.2); BILIRUBIN,TOTAL 0.3 mg/dL (0.2-1.0); BLOOD UREA NITROGEN 12 mg/dL (7-18); CALCIUM 8.6 mg/dL (8.5-10.1); CHLORIDE 106 mmol/L (98-107); CO2 30 mmol/L (21-32); CREATININE 0.8 mg/dL (0.55-1.02); GLUCOSE,RANDOM 81 mg/dL (74-106); PHOSPHOROUS 3.6 mg/dL (2.5-4.9); POTASSIUM 3.6 mmol/L (3.5-5.1); SGOT/AST 19 U/L (15-37); SGPT/ALT 28 U/L (12-78); SODIUM 142 mmol/L (136-145)
[2018-05-01 10:31] LABS: ALK PHOS 66 U/L (45-117); TOT PROT 6.8 g/dl (6.4-8.2)
[2018-05-01] MEDS ORDERED: PACLITAXEL IVPB ONE (12:30)
[2018-05-01] MEDS ORDERED: SODIUM CHLORIDE IVPB ONE (12:30)
[2018-05-01 15:37] VITALS: TEMP 98.6
[2018-05-01] MEDS ORDERED: PORTA CATH FLUSH 10 ML IVPUSH ONE (15:37)
[2018-05-01 16:17] VITALS: BP 126/87; PULSE 96
[2018-05-01 17:09] LABS: ALBUMIN 3.7 g/dl (3.4-5.0); ALK PHOS 65 U/L (45-117); BILIRUBIN,DIRECT < 0.2 mg/dL (0.0-0.2); BILIRUBIN,TOTAL 0.3 mg/dL (0.2-1.0); MAGNESIUM 2.1 mg/dL (1.8-2.4); SGOT/AST 18 U/L (15-37); SGPT/ALT 27 U/L (12-78); TOT PROT 6.8 g/dl (6.4-8.2)
== END 2018-05-01 16:17 | disposition home or self-care (01) ==
LOC: JONCCHEMO 07:51 → J7W 11:50 → JONCCHEMO 16:17
PROVIDERS: ATTEND Internal Medicine Hematology & Oncology
DX: Z51.11 Encounter for antineoplastic chemotherapy (principal); C50.011 Malignant neoplasm of nipple and areola, right female breast
CPT/HCPCS: 36415; 80053; 80076; 82248; 83735; 84100; 85025; 96361; 96367; 96375; 96413; J1100; J2405

== ENCOUNTER 2018-05-04 10:51 | Day surgery (SDC) | payer OTHER, BC ==
[~2018-05-04 10:51] MED LIST changes: -SODIUM CHLORIDE 250 ML IV ONE; +TBO-FILGRASTIM 480 MCG/0.8 ML DISP.SYRIN SQ ONE
[2018-05-04 18:27] VITALS: BP 130/83; PULSE 94; TEMP 98.4
[2018-05-08] MEDS ORDERED: SODIUM CHLORIDE 250 ML IV ONE ×2 (09:00→11:30)
[2018-05-08] MEDS ORDERED: [UNRECOGNIZED DRUG - OTHER] IVPB ONE (10:00)
[2018-05-08] MEDS ORDERED: DEXAMETHASONE IVPB ONE (10:00)
[2018-05-08] MEDS ORDERED: ONDANSETRON IVPB ONE (10:00)
[2018-05-08] MEDS ORDERED: DIPHENHYDRAMINE IVPB ONE (10:00)
[2018-05-08] MEDS ORDERED: PACLITAXEL 150 MG in SODIUM CHLORIDE 250 ML IVPB ONE (10:30)
== END 2018-05-04 12:00 | disposition home or self-care (01) ==
LOC: JONCCHEMO 10:51 → J7W 11:42 → JONCCHEMO 12:45
PROVIDERS: ATTEND Internal Medicine Hematology & Oncology
PROC: 3E013GC Introduction of Other Therapeutic Substance into Subcutaneous Tissue, Percutaneous Approach (ICD-10-PCS; principal; 2018-05-04)
DX: C50.011 Malignant neoplasm of nipple and areola, right female breast (principal); Z76.89 Persons encountering health services in other specified circumstances
CPT/HCPCS: 96372; J1447

== ENCOUNTER 2018-05-22 07:36 | Day surgery (SDC) | payer OTHER, BC ==
[2018-05-22] MEDS ORDERED: SODIUM CHLORIDE 250 ML IV ONE ×2 (09:00→11:30)
[2018-05-22] MEDS ORDERED: DEXAMETHASONE IVPB ONE (10:00)
[2018-05-22] MEDS ORDERED: DIPHENHYDRAMINE IVPB ONE (10:00)
[2018-05-22] MEDS ORDERED: ONDANSETRON IVPB ONE (10:00)
[2018-05-22] MEDS ORDERED: [UNRECOGNIZED DRUG - OTHER] IVPB ONE (10:00)
[2018-05-22] MEDS ORDERED: PACLITAXEL 114 MG in SODIUM CHLORIDE 250 ML IVPB ONE (10:30)
[2018-05-22 11:17] LABS: BASO % 0.6 % (0-2.0); EOS % 1.4 % (0-4.5); HEMATOCRIT 33.4 % (32.4-45.2); HEMOGLOBIN 11.2 GM/dL (10.7-15.3); LYMPH % 28.2 % (8-40); MCH 32.5 pg (25.7-33.7); MCHC 33.5 g/dl (32.0-36.0); MEAN CELL VOLUME 97.2 fl (80-96); MEAN PLT VOLUME 7.5 fl (7.5-11.1); MONO % 12.8 % (3.8-10.2); PLATELET COUNT 231 K/MM3 (134-434); RBC 3.44 M/mm3 (3.60-5.2)
[2018-05-22 11:48] LABS: ALBUMIN 3.9 g/dl (3.4-5.0); ALK PHOS 54 U/L (45-117); ANION GAP 3 (8-16); BILIRUBIN,DIRECT 0.2 mg/dL (0.0-0.2); BILIRUBIN,TOTAL 0.6 mg/dL (0.2-1.0); BLOOD UREA NITROGEN 14 mg/dL (7-18); CALCIUM 8.8 mg/dL (8.5-10.1); CHLORIDE 104 mmol/L (98-107); CO2 34 mmol/L (21-32); CREATININE 0.8 mg/dL (0.55-1.02); GLUCOSE,RANDOM 78 mg/dL (74-106); POTASSIUM 3.6 mmol/L (3.5-5.1); SGOT/AST 26 U/L (15-37); SGPT/ALT 35 U/L (12-78); SODIUM 141 mmol/L (136-145); TOT PROT 7.1 g/dl (6.4-8.2)
[2018-05-22 18:18] VITALS: BP 123/71; PULSE 81; TEMP 98.1
[2018-05-22] MEDS ORDERED: PORTA CATH FLUSH 10 ML IVPUSH ONE (18:30)
== END 2018-05-22 16:45 | disposition home or self-care (01) ==
LOC: JONCCHEMO 07:36 → J7W 12:40 → JONCCHEMO 16:45
PROVIDERS: ATTEND Internal Medicine Hematology & Oncology
DX: Z51.11 Encounter for antineoplastic chemotherapy (principal); C50.011 Malignant neoplasm of nipple and areola, right female breast
CPT/HCPCS: 36415; 80053; 80076; 83735; 85025; 96361; 96367; 96375; 96413; J1100

== ENCOUNTER 2018-05-29 09:01 | Day surgery (SDC) | payer OTHER, BC ==
[2018-05-29 11:05] LABS: BASO % 0.8 % (0-2.0); EOS % 1.2 % (0-4.5); HEMATOCRIT 33.8 % (32.4-45.2); HEMOGLOBIN 11.4 GM/dL (10.7-15.3); LYMPH % 31.5 % (8-40); MCH 32.3 pg (25.7-33.7); MCHC 33.7 g/dl (32.0-36.0); MEAN CELL VOLUME 96.1 fl (80-96); MEAN PLT VOLUME 7.7 fl (7.5-11.1); NEUT % 58.5 % (42.8-82.8); PLATELET COUNT 221 K/MM3 (134-434); RBC 3.52 M/mm3 (3.60-5.2); RDW 14.7 % (11.6-15.6); WHITE BLOOD COUNT 3.9 K/mm3 (4.0-10.0)
[2018-05-29] MEDS ORDERED: DIPHENHYDRAMINE IVPB ONE (11:30)
[2018-05-29] MEDS ORDERED: [UNRECOGNIZED DRUG - OTHER] IVPB ONE (11:30)
[2018-05-29] MEDS ORDERED: ONDANSETRON IVPB ONE (11:30)
[2018-05-29] MEDS ORDERED: DEXAMETHASONE IVPB ONE (11:30)
[2018-05-29 11:41] LABS: ALBUMIN 3.7 g/dl (3.4-5.0); ANION GAP 10 (8-16); BILIRUBIN,DIRECT < 0.2 mg/dL (0.0-0.2); BILIRUBIN,TOTAL 0.4 mg/dL (0.2-1.0); BLOOD UREA NITROGEN 19 mg/dL (7-18); CALCIUM 8.9 mg/dL (8.5-10.1); CHLORIDE 103 mmol/L (98-107); CO2 28 mmol/L (21-32); CREATININE 0.8 mg/dL (0.55-1.02); GLUCOSE,RANDOM 110 mg/dL (74-106); MAGNESIUM 2.1 mg/dL (1.8-2.4); POTASSIUM 3.7 mmol/L (3.5-5.1); SGOT/AST 20 U/L (15-37); SGPT/ALT 31 U/L (12-78); SODIUM 141 mmol/L (136-145); TOT PROT 7.1 g/dl (6.4-8.2)
[2018-05-29 11:42] LABS: ALK PHOS 52 U/L (45-117)
[2018-05-29] MEDS ORDERED: SODIUM CHLORIDE 250 ML IV ONE ×2 (11:45)
[2018-05-29] MEDS ORDERED: PACLITAXEL 114 MG in SODIUM CHLORIDE 250 ML IVPB ONE (12:00)
[2018-05-29 16:09] VITALS: TEMP 98.3
[2018-05-29 17:54] VITALS: BP 107/71; PULSE 73
[2018-05-29] MEDS ORDERED: PORTA CATH FLUSH 10 ML IVPUSH ONE (18:00)
== END 2018-05-29 15:50 | disposition home or self-care (01) ==
LOC: JONCCHEMO 09:01 → J7W 11:34 → JONCCHEMO 15:50
PROVIDERS: ATTEND Internal Medicine Hematology & Oncology
DX: Z51.11 Encounter for antineoplastic chemotherapy (principal); C50.011 Malignant neoplasm of nipple and areola, right female breast
CPT/HCPCS: 36415; 80053; 80076; 83735; 85025; 96361; 96367; 96375; 96413; J1100

== ENCOUNTER 2018-06-12 07:32 | Day surgery (SDC) | payer OTHER, BC ==
[~2018-06-12 07:32] MED LIST changes: +DEXAMETHASONE IVPB ONE; +DIPHENHYDRAMINE IVPB ONE; +ONDANSETRON IVPB ONE; -TBO-FILGRASTIM 480 MCG/0.8 ML DISP.SYRIN SQ ONE; +[UNRECOGNIZED DRUG - OTHER] IVPB ONE
[2018-06-12] MEDS ORDERED: DEXAMETHASONE IVPB ONE ×4 (08:00→08:30)
[2018-06-12] MEDS ORDERED: SODIUM CHLORIDE 250 ML IV ONE ×2 (08:00→10:00)
[2018-06-12] MEDS ORDERED: ONDANSETRON IVPB ONE ×4 (08:00→08:30)
[2018-06-12] MEDS ORDERED: [UNRECOGNIZED DRUG - OTHER] IVPB ONE ×3 (08:00→08:30)
[2018-06-12] MEDS ORDERED: DIPHENHYDRAMINE IVPB ONE ×4 (08:00→08:30)
[2018-06-12] MEDS ORDERED: [UNRECOGNIZED DRUG - OTHER] IVPB ONE (08:30)
[2018-06-12] MEDS ORDERED: PACLITAXEL 114 MG in SODIUM CHLORIDE 250 ML IVPB ONE (09:00)
[2018-06-12 10:24] LABS: BASO % 0.6 % (0-2.0); EOS % 0.3 % (0-4.5); HEMATOCRIT 32.1 % (32.4-45.2); HEMOGLOBIN 10.8 GM/dL (10.7-15.3); LYMPH % 28.5 % (8-40); MCH 32.1 pg (25.7-33.7); MCHC 33.5 g/dl (32.0-36.0); MEAN CELL VOLUME 95.7 fl (80-96); MEAN PLT VOLUME 7.3 fl (7.5-11.1); MONO % 7.6 % (3.8-10.2); PLATELET COUNT 204 K/MM3 (134-434); RBC 3.36 M/mm3 (3.60-5.2); RDW 15.1 % (11.6-15.6); WHITE BLOOD COUNT 3.2 K/mm3 (4.0-10.0)
[2018-06-12 10:49] LABS: ALBUMIN 3.8 g/dl (3.4-5.0); ALK PHOS 49 U/L (45-117); ANION GAP 6 (8-16); BILIRUBIN,TOTAL 0.5 mg/dL (0.2-1.0); BLOOD UREA NITROGEN 15 mg/dL (7-18); CALCIUM 8.7 mg/dL (8.5-10.1); CHLORIDE 108 mmol/L (98-107); CO2 30 mmol/L (21-32); CREATININE 0.9 mg/dL (0.55-1.02); GLUCOSE,RANDOM 82 mg/dL (74-106); POTASSIUM 3.4 mmol/L (3.5-5.1); SGOT/AST 17 U/L (15-37); SGPT/ALT 30 U/L (12-78); SODIUM 144 mmol/L (136-145); TOT PROT 6.8 g/dl (6.4-8.2)
[2018-06-12 10:50] LABS: ALBUMIN 3.7 g/dl (3.4-5.0); BILIRUBIN,DIRECT < 0.2 mg/dL (0.0-0.2); BILIRUBIN,TOTAL 0.5 mg/dL (0.2-1.0); SGOT/AST 16 U/L (15-37); SGPT/ALT 30 U/L (12-78); TOT PROT 6.8 g/dl (6.4-8.2)
[2018-06-12 10:51] LABS: ALK PHOS 48 U/L (45-117)
[2018-06-12] MEDS ORDERED: POTASSIUM CHLORIDE TABS 20 MEQ TABLET.ER (FP) PO ONE (11:50)
[2018-06-12 16:05] VITALS: TEMP 98.8
[2018-06-12] MEDS ORDERED: PORTA CATH FLUSH 10 ML IVPUSH ONE (16:06)
[2018-06-12 16:37] VITALS: BP 108/62; PULSE 79
== END 2018-06-12 16:38 | disposition home or self-care (01) ==
LOC: JONCCHEMO 07:32 → J7W 12:18 → JONCCHEMO 16:38
PROVIDERS: ATTEND Internal Medicine Hematology & Oncology
PROC: 3E04305 Introduction of Other Antineoplastic into Central Vein, Percutaneous Approach (ICD-10-PCS; principal; 2018-06-12)
PROC: 3E043GC Introduction of Other Therapeutic Substance into Central Vein, Percutaneous Approach (ICD-10-PCS; 2018-06-12)
PROC: 3E0437Z Introduction of Electrolytic and Water Balance Substance into Central Vein, Percutaneous Approach (ICD-10-PCS; 2018-06-12)
DX: Z51.11 Encounter for antineoplastic chemotherapy (principal); C50.011 Malignant neoplasm of nipple and areola, right female breast; Z17.0 Estrogen receptor positive status [ER+]; I10 Essential (primary) hypertension; Z88.0 Allergy status to penicillin; Z91.012 Allergy to eggs
CPT/HCPCS: 36415; 80053; 80076; 83735; 85025; 96361; 96367; 96375; 96413; J1100; J2405

== ENCOUNTER 2018-12-18 07:44 | Day surgery (SDC) | payer BC, OTHER ==
--- NOTE | 2018-12-14 11:06 | HP ---
Admitting History and Physical - Primary Care Physician PCP: Kenny Burrell - Admission Chief Complaint: right breast cancer History of Present Illness: 58 yo female with history of right breast cancer and chemo is now presenting for removal of lifeport. History Source: Patient Limitations to Obtaining History: No Limitations - Past Medical History Cardiovascular: Yes: HTN - Past Surgical History Past Surgical History: Yes: Breast Biopsy (right breast WE with andx 2+/13 nodes 3.2 cm IDC ER+ [place] and her2 negative , 10/10/2017 and re excision 2016 negative margins) Additional Past Surgical History: left breast WE 1976-negative - Smoking History Smoking history: Never smoked Have you smoked in the past 12 months: No - Alcohol/Substance Use Hx Alcohol Use: No Home Medications - Allergies Allergies/Adverse Reactions: Allergies Allergy/AdvReac Type Severity Reaction Status Date / Time Influenza Virus Vaccines Allergy Severe Swelling Verified 11/03/17 10:04 egg yolk Allergy Intermediate DIARRHEA Verified 11/03/17 10:04 Penicillins Allergy Intermediate Rash Verified 11/03/17 10:04 - Home Medications Home Medications: Ambulatory Orders Calc/D3/Mag/Zn/[place]/Maximiliano/[place] [Calcium 600 mg Plus Vit D Tab] 1 tab PO DAILY Chlorthalidone [Hygroton -] 25 mg PO DAILY 10/03/17 Enalapril Maleate [Vasotec -] 10 mg PO DAILY 10/03/17 Ergocalciferol [Vitamin D2] 50,000 unit PO WEEKLY 10/03/17 Labetalol HCl [Normodyne -] 200 mg PO BID 10/03/17 Amlodipine Besylate [Norvasc -] 10 mg PO DAILY 10/10/17 Family Disease History - Family Disease History Family History: Unremarkable Review of Systems - Review of Systems Constitutional: reports: No Symptoms Cardiovascular: reports: No Symptoms Respiratory: reports: No Symptoms Physical Examination Constitutional: Yes: Well Nourished, Calm Breast(s): Yes: Other (Left chest wall infusaport in place. Bilateral breasts without any suspicious masses or adenopathy noted.) Problem List - Problems (1) Breast cancer, right breast Code(s): C50.911 - MALIGNANT NEOPLASM OF UNSP SITE OF RIGHT FEMALE BREAST Assessment/Plan Plan; Removal of infusaport
[2018-12-14 14:36] VITALS: BMI 27.7
[2018-12-18] MEDS ORDERED: PROPOFOL 20 ML ONE (08:00)
[2018-12-18] MEDS ORDERED: SUCCINYLCHOLINE CHLORIDE 200 MG/10 ML VIAL ONE (08:00)
[2018-12-18] MEDS ORDERED: ONDANSETRON 4 MG/2 ML VIAL ONE (08:06)
[2018-12-18] MEDS ORDERED: ceFAZolin SODIUM 1 GM VIAL ONE (08:07)
[2018-12-18] MEDS ORDERED: SODIUM CHLORIDE 0.9% P/F 10 ML VIAL IJ ONE (08:07)
[2018-12-18] MEDS ORDERED: DESFLURANE GAS 240 ML BOTTLE IH ONE (09:06)
[2018-12-18] MEDS ORDERED: MIDAZOLAM HCL 2 MG/2 ML SINGLE DOSE VIAL ONE (09:06)
[2018-12-18] MEDS ORDERED: BUPIVACAINE HCL 0.25% 125 MG/50 ML VIAL ONE (09:11)
[2018-12-18] MEDS ORDERED: LIDOCAINE HCL 1% PRESERVATIVE FREE - 30ML VIAL ONE (09:11)
[2018-12-18] MEDS ORDERED: LIDOCAINE HCL 2% (20ML MULTI-DOSE VIAL) NR ONE (09:11)
[2018-12-18] MEDS ORDERED: LIDOCAINE HCL/PF 2% SDV 5ML VIAL ONE (09:37)
[2018-12-18] MEDS ORDERED: LIDOCAINE HCL 1%, 10 MG/ML (50 mL VIAL) IJ ONE (10:00)
[2018-12-18] MEDS ORDERED: ONDANSETRON 4 MG/2 ML VIAL IVPUSH PRN ×2 (10:24→11:40)
[2018-12-18] MEDS ORDERED: KETOROLAC TROMETHAMINE 30 MG/1 ML VIAL IVPUSH PRN (10:24)
[2018-12-18] MEDS ORDERED: DEXTROSE 5%-0.45% SALINE 1,000 ML IV SCH (10:30)
[2018-12-18] MEDS ORDERED: PROMETHAZINE HCL 25 MG/1 ML VIAL IVPUSH ONE (10:36)
[2018-12-18] MEDS ORDERED: PROMETHAZINE HCL 25 MG/1 ML VIAL ONE (10:36)
[2018-12-18 10:55] VITALS: TEMP 98.3
[2018-12-18] MEDS ORDERED: oxyCODONE HCL 5 MG TABLET PO PRN (11:40)
[2018-12-18] MEDS ORDERED: PROMETHAZINE HCL 25 MG/1 ML VIAL IVPUSH PRN (11:40)
[2018-12-18 12:12] VITALS: BP 101/69; PULSE 68
--- NOTE | 2018-12-18 17:11 | OP ---
DATE OF OPERATION: 12/18/2018 PREOPERATIVE DIAGNOSIS: History of right breast cancer. POSTOPERATIVE DIAGNOSIS: History of right breast cancer. PROCEDURE: Excision of left subclavian LifePort. ANESTHESIA: IV sedation with local. ATTENDING SURGEON: Alejandrina Burrell MD ROD HANGER: SHAUN Cage ESTIMATED BLOOD LOSS: Minimal. COMPLICATIONS: None. DESCRIPTION OF PROCEDURE: Patient was made aware of the risks and benefits of the procedure and consented. She was placed in supine position. After IV sedation was administered, the operative site was prepped and draped in usual sterile fashion. Next, 1% lidocaine without epinephrine was used for local anesthesia. An oblique incision was made over the prior incision. Using sharp dissection, the tissues were dissected down to the port head where the capsule was incised. The port was then removed, and sharply freed from its attachments and submitted in its entirety. The lumen was then oversewn with a [id number] suture of 3-0 Vicryl. The wound was copiously irrigated with normal saline. Hemostasis maintained by electrocautery. The wound was then closed with deep 3-0 Vicryl, followed by running subcuticular 4-0 Monocryl. Steri-Strips and a sterile bandage were then applied, and the patient, having tolerated the procedure well, was transferred to the recovery room in excellent condition. ALEJANDRINA BURRELL M.D. [id number]
--- NOTE | 2018-12-20 10:59 | PATH ---
Surgical Pathology Report Patient Name: NATALY DAVALOS Med. Rec. #: [id number] /Age/Gender: 1960 (Age: 58) / F Account: [id number] Location: [facility] Taken: 12/18/2018 Received: 12/18/2018 Reported: 12/20/2018 Physicians: Kenny Burrell M.D. Specimen(s) Received INFUSE-A- PORT LEFT CHEST WALL Clinical History [id number] left chest wall Final Diagnosis [id number], CHEST WALL, LEFT, REMOVAL: PORT. MACROSCOPIC DIAGNOSIS. Electronically Signed Carina Christianson M.D. Gross Description Received fresh labeled "Rwhnoo-z-Buje left chest wall," is a 2.6 x 2.4 x 1.3 cm purple, triangular device, consistent with a port. The port displays a 19.5 cm in length portion of white tubing attached at one aspect. No soft tissue is present. No sections are submitted, gross only. /12/19/2018 saudi12/19/2018
== END 2018-12-18 12:00 | disposition home or self-care (01) ==
LOC: FASU 07:44
PROVIDERS: ATTEND Surgery Surgical Oncology
PROC: 0JPT3WZ Removal of Totally Implantable Vascular Access Device from Trunk Subcutaneous Tissue and Fascia, Percutaneous Approach (ICD-10-PCS; principal; 2018-12-18 09:30)
DX: Z45.2 Encounter for adjustment and management of vascular access device (principal); Z85.3 Personal history of malignant neoplasm of breast; I10 Essential (primary) hypertension
CPT/HCPCS: 88300-TC